=== PATIENT | male | born 1935 | race Caucasian/White ===

== ENCOUNTER 2016-12-15 17:42 | Inpatient (IN) | payer MEDICARE, BC ==
[2016-12-15] MEDS ORDERED: Sodium Chloride 0.9% 1,000 ML IV SCH ×2 (19:15→23:28)
[2016-12-15] MEDS ORDERED: Iopamidol 612 MG/ML 100 ML Bottle IV PRN (20:08)
[2016-12-15] MEDS ORDERED: Sodium Chloride 0.9% 10 ML Syringe FLUSH PRN (20:08)
--- NOTE | 2016-12-15 22:07 | EDM.PDOC ---
ED HISTORY OF PRESENT ILLNESS - General Chief Complaint: Chest Pain Stated Complaint: TROUBLE BREATHING Time Seen by Provider: 12/15/16 17:59 Source: Reports: Patient History Limitations: Reports: No limitations - History of Present Illness INITIAL COMMENTS - FREE TEXT/NARRATIVE: History of present illness: [72-year-old male presents with chest pain off and on it started this morning. He is somewhat vague he is described as burning and sharp and pleuritic in nature at times. He also describes a squeezing or tightening. at the time that I am seeing him he is not having a chest pain unless he coughs. He also complains of extreme weakness. He does have problems with pain of his hips and knees as well which is chronic. He has a cough as well the is minimally productive. He did have the stool a couple of days ago increased blood in his stool which was bright red blood per rectum staining the toilet. He may have had a fever off and on. He has trouble constipation no diarrhea denies dysuria. He occasionally has abdominal pain that is not too troublesome and intermittent. The last time was in the suprapubic area. He denies any upper abdominal pain. ] Review of systems: As per history of present illness and below otherwise all systems reviewed and negative. Past medical history: As per history of present illness and as reviewed below otherwise noncontributory. Surgical history: As per history of present illness and as reviewed below otherwise noncontributory. Social history: No reported history of drug or alcohol abuse. Family history: As per history of present illness and as reviewed below otherwise noncontributory. Physical exam: HEENT: Atraumatic, normocephalic, pupils reactive, conjunctival pallor is present but no scleral icterus, mucous membranes moist, throat clear, neck supple, with tenderness along the left neck which is chronic for him, trachea midline. Lungs: Has fair to good air movement with dry sounding crackles in the bases Heart: S1S2, regular Abdomen: Soft, nondistended, nontender. Negative for masses or hepatosplenomegaly. Negative for costovertebral tenderness. Pelvis: Stable nontender. Genitourinary: Deferred. Rectal: Deferred. Extremities: Atraumatic, negative for cords or calf pain. Neurovascular unremarkable. Neuro: Awake, alert, oriented. Cranial nerves II through XII unremarkable. Cerebellum unremarkable. Motor and sensory unremarkable throughout. Exam nonfocal. Diagnostics: [CBC complete metabolic panel UA were done in the most significant finding was a hemoglobin of 7.5. Abdominal pelvic CT along with a chest CT were obtained. He may have some mild congestive heart failure or some scarring. 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 Grande the patient will be admitted to him he received a unit of blood tonight. Tomorrow he can be prepped for upper and lower endoscopy on Saturday.] Definitive disposition and diagnosis as appropriate pending reevaluation and review of above. - Related Data Allergies/ADRs: Allergies Allergy/AdvReac Type Severity Reaction Status Date / Time Penicillins Allergy Cannot Verified 12/15/16 17:48 Remember Home Meds: Home Meds Aspirin [Halfprin] 81 mg PO DAILY 11/29/15 [History] Betamethasone/Propylene Glyc [Diprolene 0.05%] 1 applic TP BID 11/29/15 [History ] Bisacodyl [Dulcolax] 10 mg RC ASDIRECTED PRN 11/29/15 [History] Budesonide/Formoterol [Symbicort 160-4.5 Mcg Inhaler] 2 puff IH BID 11/29/15 [ History] Carbidopa/Levodopa [Sinemet 25-100 mg Tablet] 2 tab PO QID 11/29/15 [History] Cholecalciferol (Vitamin D3) [Vitamin D] 2,000 unit PO DAILY 11/29/15 [History] Citalopram Hydrobromide [Celexa] 20 mg PO DAILY 11/29/15 [History] Donepezil HCl [Aricept] 10 mg PO DAILY 11/29/15 [History] Glucosamine [Glucosamine Sulfate] 500 mg PO BID 11/29/15 [History] [place]-3S/DHA/Epa/Fish Oil [[place]-3 Fish Oil 1,000 mg Sfgl] 1 tab PO BID [History] Propranolol HCl [Inderal LA] 120 mg PO DAILY 11/29/15 [History] Tamsulosin HCl [Flomax] 0.4 mg PO DAILY 11/29/15 [History] Tiotropium [Spiriva HandiHaler] 1 cap INH DAILY 11/29/15 [History] Topiramate [Topamax] 25 mg PO BID 11/29/15 [History] Triamcinolone Acetonide [Kenalog 0.1% Crm] 1 applic TOP TID 11/29/15 [History] Finasteride [Proscar] 5 mg PO DAILY 08/29/16 [History] Mirabegron [Myrbetriq] 50 mg PO DAILY 08/29/16 [History] Multivitamin W-Minerals/Lutein [Vision Plus Lutein Vitamin] 1 each PO DAILY [History] Ubidecarenone [Co Q-10] 100 mg PO DAILY 08/29/16 [History] Methocarbamol [Robaxin] 500 mg PO Q8H PRN 12/15/16 [History] Past Medical History HEENT History: Reports: Cataract Respiratory History: Reports: COPD, SOB Gastrointestinal History: Reports: Chronic constipation, Cirrhosis Genitourinary History: Reports: BPH Musculoskeletal History: Reports: Back pain, chronic, Fracture Other Musculoskeletal History: left leg in [facility] [place] Neurological History: Reports: Parkinson's Dermatologic History: Reports: Other (see below) Other Dermatologic History: skin rash - Infectious Disease History Infectious Disease History: Reports: Chicken pox, Measles, Mumps - Past Surgical History HEENT Surgical History: Reports: Cataract surgery GI Surgical History: Reports: Colonoscopy, EGD, Hernia, inguinal Other GI Surgeries/Procedures: liver biopsy Social & Family History - Tobacco Use Smoking Status *Q: Never Smoker Years of Tobacco use: 48 Month Tobacco Last Used: 1999 Second Hand Smoke Exposure: No - Caffeine Use Caffeine Use: Reports: Coffee - Recreational Drug Use Recreational Drug Use: No ED ROS GENERAL - Review of Systems Review Of Systems: ROS reveals no pertinent complaints other than HPI. ED EXAM, GENERAL - Physical Exam Exam: See Below Course - Vital Signs Last Recorded V/S: Last Vital Signs Temp 37 C 12/15/16 18:11 Pulse 62 12/15/16 21:33 Resp 20 12/15/16 21:33 BP 162/100 H 12/15/16 21:33 Pulse Ox 94 L 12/15/16 21:33 - Orders/Labs/Meds Orders: Active Orders 24 hr Category Date Time Status EKG Documentation Completion [RC] ASDIRECTED Care 12/15/16 18:25 Active EKG Documentation Completion [RC] ASDIRECTED Care 12/15/16 19:05 Active Abdomen Pelvis w Cont [CT] Stat Exams 12/15/16 19:59 Taken Chest 1V Frontal [CR] Stat Exams 12/15/16 18:26 Taken PATIENT RETYPE [BBK] Stat Lab 12/15/16 19:15 Results TYPE AND SCREEN [BBK] Stat Lab 12/15/16 19:15 Results Iopamidol [Isovue-300 (61%)] Med 12/15/16 20:08 Active 100 ml IV . DIRECTED PRN Sodium Chloride 0.9% [Normal Saline] 1,000 ml Med 12/15/16 19:15 Active IV ASDIRECTED Sodium Chloride 0.9% [Normal Saline] 70 ml Med 12/15/16 20:15 Active IV ASDIRECTED Sodium Chloride 0.9% [Saline Flush] Med 12/15/16 20:08 Active 10 ml FLUSH ONETIME PRN EKG 12 Lead [EK] Stat Ther 12/15/16 18:24 Ordered EKG 12 Lead [EK] Stat Ther 12/15/16 19:05 Ordered Medication Orders Sodium Chloride (Normal Saline) 1,000 mls @ 250 mls/hr IV ASDIRECTED [facility] Last Admin: 12/15/16 19:17 Dose: 250 mls/hr Sodium Chloride (Normal Saline) 70 mls @ 3 mls/sec IV ASDIRECTED [facility] Last Admin: 12/15/16 20:55 Dose: 3 mls/sec Iopamidol (Isovue-300 (61%)) 100 ml IV . DIRECTED PRN PRN Reason: RADIOLOGY EXAM Stop: 12/16/16 20:09 Last Admin: 12/15/16 20:54 Dose: 100 ml Sodium Chloride (Saline Flush) 10 ml FLUSH ONETIME PRN PRN Reason: per radiology protocol Last Admin: 12/15/16 20:55 Dose: 10 ml Labs: Laboratory Tests 12/15/16 12/15/16 12/15/16 Range/Units 18:39 18:39 18:39 WBC 5.9 (4.5-11.0) K/uL RBC 2.36 L (4.30-5.90) M/uL Hgb 7.4 L (12.0-15.0) g/dL Hct 23.0 L (40.0-54.0) % MCV 98 (80-98) fL MCH 31 (27-31) pg MCHC 32 (32-36) % Plt Count 134 L (150-400) K/uL Neut % (Auto) 59 (36-66) % Lymph % (Auto) 28 (24-44) % [place] % (Auto) 10 H (2-6) % Eos % (Auto) 3 (2-4) % Baso % (Auto) 0 (0-1) % PT 11.8 (9.5-12.0) sec INR 1.11 (0.80-1.20) D-Dimer, Quantitative (0.0-400.0) ng/mL Sodium 139 L (140-148) mmol/L Potassium 4.5 (3.6-5.2) mmol/L Chloride 106 (100-108) mmol/L Carbon Dioxide 25 (21-32) mmol/L Anion Gap 12.5 (5.0-14.0) mmol/L BUN 35 H (7-18) mg/dL Creatinine 1.6 H (0.8-1.3) mg/dL Est Cr Clr Drug Dosing 39.06 mL/min Estimated GFR (MDRD) 42 L (>60) Glucose 141 H (74-106) mg/dL Lactic Acid (0.4-2.0) mmol/L Calcium 7.9 L (8.5-10.1) mg/dL Total Bilirubin 0.4 (0.2-1.0) mg/dL AST 24 (15-37) U/L ALT 9 L (12-78) U/L Alkaline Phosphatase 66 (46-116) U/L Troponin I (0.000-0.056) ng/mL C-Reactive Protein (0.0-0.3) mg/dL [id number] Pept (5-450) pg/mL Total Protein 6.6 (6.4-8.2) g/dL Albumin 2.5 L (3.4-5.0) g/dL Globulin 4.1 H (2.3-3.5) g/dL Albumin/Globulin Ratio 0.6 L (1.2-2.2) Urine Color Urine Appearance Urine pH (4.5-8.0) Ur Specific [place] (1.008-1.030) Urine Protein (NEGATIVE) mg/dL Urine Glucose (UA) (NEGATIVE) mg/dL Urine Ketones (NEGATIVE) mg/dL Urine Occult Blood (NEGATIVE) Urine Nitrite (NEGAITVE) Urine Bilirubin (NEGATIVE) Urine Urobilinogen (NORMAL) mg/dL Ur Leukocyte Esterase (NEGATIVE) Urine RBC (0-5) Urine WBC (0-5) Ur Epithelial Cells Amorphous Sediment Urine Bacteria Urine Mucus Blood Type Gel Antibody Screen 12/15/16 12/15/16 12/15/16 Range/Units 18:39 18:39 18:39 WBC (4.5-11.0) K/uL RBC (4.30-5.90) M/uL Hgb (12.0-15.0) g/dL Hct (40.0-54.0) % MCV (80-98) fL MCH (27-31) pg MCHC (32-36) % Plt Count (150-400) K/uL Neut % (Auto) (36-66) % Lymph % (Auto) (24-44) % [place] % (Auto) (2-6) % Eos % (Auto) (2-4) % Baso % (Auto) (0-1) % PT (9.5-12.0) sec INR (0.80-1.20) D-Dimer, Quantitative 1850 H (0.0-400.0) ng/mL Sodium (140-148) mmol/L Potassium (3.6-5.2) mmol/L Chloride (100-108) mmol/L Carbon Dioxide (21-32) mmol/L Anion Gap (5.0-14.0) mmol/L BUN (7-18) mg/dL Creatinine (0.8-1.3) mg/dL Est Cr Clr Drug Dosing mL/min Estimated GFR (MDRD) (>60) Glucose (74-106) mg/dL Lactic Acid 0.8 (0.4-2.0) mmol/L Calcium (8.5-10.1) mg/dL Total Bilirubin (0.2-1.0) mg/dL AST (15-37) U/L ALT (12-78) U/L Alkaline Phosphatase (46-116) U/L Troponin I 0.045 (0.000-0.056) ng/mL C-Reactive Protein 1.52 H (0.0-0.3) mg/dL Lfo-[id number]-Elgiwoxalzy Pept 2008 H (5-450) pg/mL Total Protein (6.4-8.2) g/dL Albumin (3.4-5.0) g/dL Globulin (2.3-3.5) g/dL Albumin/Globulin Ratio (1.2-2.2) Urine Color Urine Appearance Urine pH (4.5-8.0) Ur Specific [place] (1.008-1.030) Urine Protein (NEGATIVE) mg/dL Urine Glucose (UA) (NEGATIVE) mg/dL Urine Ketones (NEGATIVE) mg/dL Urine Occult Blood (NEGATIVE) Urine Nitrite (NEGAITVE) Urine Bilirubin (NEGATIVE) Urine Urobilinogen (NORMAL) mg/dL Ur Leukocyte Esterase (NEGATIVE) Urine RBC (0-5) Urine WBC (0-5) Ur Epithelial Cells Amorphous Sediment Urine Bacteria Urine Mucus Blood Type Gel Antibody Screen 12/15/16 12/15/16 Range/Units 19:15 20:27 WBC (4.5-11.0) K/uL RBC (4.30-5.90) M/uL Hgb (12.0-15.0) g/dL Hct (40.0-54.0) % MCV (80-98) fL MCH (27-31) pg MCHC (32-36) % Plt Count (150-400) K/uL Neut % (Auto) (36-66) % Lymph % (Auto) (24-44) % [place] % (Auto) (2-6) % Eos % (Auto) (2-4) % Baso % (Auto) (0-1) % PT (9.5-12.0) sec INR (0.80-1.20) D-Dimer, Quantitative (0.0-400.0) ng/mL Sodium (140-148) mmol/L Potassium (3.6-5.2) mmol/L Chloride (100-108) mmol/L Carbon Dioxide (21-32) mmol/L Anion Gap (5.0-14.0) mmol/L BUN (7-18) mg/dL Creatinine (0.8-1.3) mg/dL Est Cr Clr Drug Dosing mL/min Estimated GFR (MDRD) (>60) Glucose (74-106) mg/dL Lactic Acid (0.4-2.0) mmol/L Calcium (8.5-10.1) mg/dL Total Bilirubin (0.2-1.0) mg/dL AST (15-37) U/L ALT (12-78) U/L Alkaline Phosphatase (46-116) U/L Troponin I (0.000-0.056) ng/mL C-Reactive Protein (0.0-0.3) mg/dL [id number]-R-[id number] Pept (5-450) pg/mL Total Protein (6.4-8.2) g/dL Albumin (3.4-5.0) g/dL Globulin (2.3-3.5) g/dL Albumin/Globulin Ratio (1.2-2.2) Urine Color Yellow Urine Appearance Clear Urine pH 5.0 (4.5-8.0) Ur Specific [place] 1.015 (1.008-1.030) Urine Protein 30 H (NEGATIVE) mg/dL Urine Glucose (UA) Normal (NEGATIVE) mg/dL Urine Ketones Negative (NEGATIVE) mg/dL Urine Occult Blood Moderate (NEGATIVE) Urine Nitrite Negative (NEGAITVE) Urine Bilirubin Negative (NEGATIVE) Urine Urobilinogen Normal (NORMAL) mg/dL Ur Leukocyte Esterase Negative (NEGATIVE) Urine RBC 5-10 H (0-5) Urine WBC Not seen (0-5) Ur Epithelial Cells Rare Amorphous Sediment Not seen Urine Bacteria Few Urine Mucus Rare Blood Type B POSITIVE Gel Antibody Screen Negative Meds: Medications Generic Name Dose Route Start Last Admin Trade Name Freq PRN Reason Stop Dose Admin Sodium Chloride 1,000 mls @ 250 mls/hr 12/15/16 19:15 12/15/16 19:17 Normal Saline IV 250 mls/hr ASDIRECTED ULISES Administration Sodium Chloride 70 mls @ 3 mls/sec 12/15/16 20:15 12/15/16 20:55 Normal Saline IV 3 mls/sec ASDIRECTED ULISES Administration Iopamidol 100 ml 12/15/16 20:08 12/15/16 20:54 Isovue-300 (61%) IV 12/16/16 20:09 100 ml . DIRECTED PRN Administration RADIOLOGY EXAM Sodium Chloride 10 ml 12/15/16 20:08 12/15/16 20:55 Saline Flush FLUSH 10 ml ONETIME PRN Administration per radiology protocol Departure - Departure Time of Disposition: 22:07 Disposition: Admitted As Inpatient 68 Condition: fair Clinical Impression: Atypical chest pain, Abnormal chest CT, Portal hypertension Anemia Qualifiers: Anemia type: unspecified type Qualified Code(s): D64.9 - Anemia, unspecified Cirrhosis Qualifiers: Hepatic cirrhosis type: unspecified hepatic cirrhosis Ascites presence: without ascites Qualified Code(s): K74.60 - Unspecified cirrhosis of liver Forms: ED Department Discharge - My Orders Last 24 Hours: My Active Orders 12/15/16 18:24 EKG 12 Lead [EK] Stat 12/15/16 18:25 EKG Documentation Completion [RC] ASDIRECTED 12/15/16 18:26 Chest 1V Frontal [CR] Stat 12/15/16 19:05 EKG Documentation Completion [RC] ASDIRECTED EKG 12 Lead [EK] Stat 12/15/16 19:15 PATIENT RETYPE [BBK] Stat TYPE AND SCREEN [BBK] Stat Sodium Chloride 0.9% [Normal Saline] 1,000 ml IV ASDIRECTED 12/15/16 19:59 Abdomen Pelvis w Cont [CT] Stat 12/15/16 20:08 Iopamidol [Isovue-300 (61%)] 100 ml IV . DIRECTED PRN Sodium Chloride 0.9% [Saline Flush] 10 ml FLUSH ONETIME PRN 12/15/16 20:15 Sodium Chloride 0.9% [Normal Saline] 70 ml IV ASDIRECTED - Assessment/Plan Last 24 Hours: My Active Orders 12/15/16 18:24 EKG 12 Lead [EK] Stat 12/15/16 18:25 EKG Documentation Completion [RC] ASDIRECTED 12/15/16 18:26 Chest 1V Frontal [CR] Stat 12/15/16 19:05 EKG Documentation Completion [RC] ASDIRECTED EKG 12 Lead [EK] Stat 12/15/16 19:15 PATIENT RETYPE [BBK] Stat TYPE AND SCREEN [BBK] Stat Sodium Chloride 0.9% [Normal Saline] 1,000 ml IV ASDIRECTED 12/15/16 19:59 Abdomen Pelvis w Cont [CT] Stat 12/15/16 20:08 Iopamidol [Isovue-300 (61%)] 100 ml IV . DIRECTED PRN Sodium Chloride 0.9% [Saline Flush] 10 ml FLUSH ONETIME PRN 12/15/16 20:15 Sodium Chloride 0.9% [Normal Saline] 70 ml IV ASDIRECTED
--- NOTE | 2016-12-15 22:47 | PCM.HP ---
H&P History of Present Illness - General Date of Service: 12/15/16 Admit Problem/Dx: Admission Diagnosis/Problem Admission Diagnosis/Problem Gastrointestinal hemorrhage Source of Information: Patient, Family, Provider History Limitations: Reports: No limitations - History of Present Illness Initial Comments - Free Text/Narative: Jonathan presents to the emergency room today with shortness of breath and epigastric discomfort. Symptoms started this morning and he had a mild episode which resolved on its own but then throughout the day he has had more and more difficulty with pain in the epigastrium and lower chest when he is taking deep breaths. This is a sharp pain that is moderate in nature. He hasn't taken anything to make it feel better. Breathing makes it feel worse. Has never had pain like this before. He had an episode yesterday where he expelled a large quantity of blood into the toilet. He did not have any abdominal pain at that time. Has not had abdominal pain. No complaints of abdominal pain or hematemesis. He has had an increase in his heartburn over the past couple of weeks. No complaints of cough. He has been weak and fatigued and short of breath with exertion over the past week or so. He says that he has not felt well for the past 2 weeks. Workup in the emergency room revealed evidence for anemia with a hemoglobin of 7.4. His hemoglobin was 10.6 six weeks ago. he'll be admitted to the hospital with concern for acute blood loss anemia secondary to gastrointestinal hemorrhage. Lower Back Pain Score (Numeric/FACES): 4 - Related Data Allergies/Adverse Reactions: Allergies Allergy/AdvReac Type Severity Reaction Status Date / Time Penicillins Allergy Cannot Verified 12/15/16 17:48 Remember Home Medications: Home Meds Aspirin [Halfprin] 81 mg PO DAILY 11/29/15 [History] Betamethasone/Propylene Glyc [Diprolene 0.05%] 1 applic TP BID 11/29/15 [History ] Bisacodyl [Dulcolax] 10 mg RC ASDIRECTED PRN 11/29/15 [History] Budesonide/Formoterol [Symbicort 160-4.5 Mcg Inhaler] 2 puff IH BID 11/29/15 [ History] Carbidopa/Levodopa [Sinemet 25-100 mg Tablet] 2 tab PO QID 11/29/15 [History] Cholecalciferol (Vitamin D3) [Vitamin D] 2,000 unit PO DAILY 11/29/15 [History] Citalopram Hydrobromide [Celexa] 20 mg PO DAILY 11/29/15 [History] Donepezil HCl [Aricept] 10 mg PO DAILY 11/29/15 [History] Glucosamine [Glucosamine Sulfate] 500 mg PO BID 11/29/15 [History] [place]-3S/DHA/Epa/Fish Oil [[place]-3 Fish Oil 1,000 mg Sfgl] 1 tab PO BID [History] Propranolol HCl [Inderal LA] 120 mg PO DAILY 11/29/15 [History] Tamsulosin HCl [Flomax] 0.4 mg PO DAILY 11/29/15 [History] Tiotropium [Spiriva HandiHaler] 1 cap INH DAILY 11/29/15 [History] Topiramate [Topamax] 25 mg PO BID 11/29/15 [History] Triamcinolone Acetonide [Kenalog 0.1% Crm] 1 applic TOP TID 11/29/15 [History] Finasteride [Proscar] 5 mg PO DAILY 08/29/16 [History] Mirabegron [Myrbetriq] 50 mg PO DAILY 08/29/16 [History] Multivitamin W-Minerals/Lutein [Vision Plus Lutein Vitamin] 1 each PO DAILY [History] Ubidecarenone [Co Q-10] 100 mg PO DAILY 08/29/16 [History] Methocarbamol [Robaxin] 500 mg PO Q8H PRN 12/15/16 [History] Past Medical History HEENT History: Reports: Cataract Respiratory History: Reports: COPD, SOB Gastrointestinal History: Reports: Chronic constipation, Cirrhosis Genitourinary History: Reports: BPH Musculoskeletal History: Reports: Back pain, chronic, Fracture Other Musculoskeletal History: left leg in college Neurological History: Reports: Parkinson's Dermatologic History: Reports: Other (see below) Other Dermatologic History: skin rash - Infectious Disease History Infectious Disease History: Reports: Chicken pox, Measles, Mumps - Past Surgical History HEENT Surgical History: Reports: Cataract surgery GI Surgical History: Reports: Colonoscopy, EGD, Hernia, inguinal Other GI Surgeries/Procedures: liver biopsy Social & Family History - Family History GI: Denies: Cirrhosis - Tobacco Use Smoking Status *Q: Never Smoker Years of Tobacco use: 48 Month Tobacco Last Used: 1999 Second Hand Smoke Exposure: No - Caffeine Use Caffeine Use: Reports: Coffee - Alcohol Use Alcohol Use History: Yes - Recreational Drug Use Recreational Drug Use: No H&P Review of Systems - Review of Systems: Review Of Systems: See Below Free Text/Narrative: A complete 12 point review of systems was obtained. Pertinent positives and negatives are noted in the history of present illness. All other systems were reviewed and were negative except as noted. Exam - Exam Exam: See Below - Vital Signs Vital Signs: Last Vital Signs Temp 37 C 12/15/16 18:11 Pulse 62 12/15/16 21:33 Resp 20 12/15/16 21:33 BP 162/100 H 12/15/16 21:33 Pulse Ox 94 L 12/15/16 21:33 Weight: 72.575 kg - Exam Quality Assessment: No: supplemental oxygen, urinary catheter General: alert, oriented, cooperative. No: mild distress HEENT: Conjunctiva clear, Posterior pharynx clear. No: Mucosa moist & pink (dry ), Scleral icterus Neck: supple, trachea midline. No: lymphadenopathy, thyromegaly Lungs: Clear to auscultation, Normal respiratory effort Cardiovascular: regular rate, regular rhythm. No: systolic murmur Abdomen: normal bowel sounds, soft, tenderness (mild lower midabdomen pain). No : distention, guarding, mass Back Exam: normal inspection, full range of motion Extremities: normal inspection, normal pulses. No: edema Peripheral Pulses: 2+: dorsalis pedis (L), dorsalis pedis (R) Skin: warm, dry, intact Neuro Extensive - Mental Status: alert, oriented x3, nl response to commands Neuro Extensive - Motor, Sensory, Reflexes: CN II-XII intact. No: dysarthria, tremor Psychiatric: alert, normal affect - Patient Data Lab Results last 24 hrs: Laboratory Results - last 24 hr 12/15/16 12/15/16 12/15/16 Range/Units 18:39 18:39 18:39 WBC 5.9 (4.5-11.0) K/uL RBC 2.36 L (4.30-5.90) M/uL Hgb 7.4 L (12.0-15.0) g/dL Hct 23.0 L (40.0-54.0) % MCV 98 (80-98) fL MCH 31 (27-31) pg MCHC 32 (32-36) % Plt Count 134 L (150-400) K/uL Neut % (Auto) 59 (36-66) % Lymph % (Auto) 28 (24-44) % [place] % (Auto) 10 H (2-6) % Eos % (Auto) 3 (2-4) % Baso % (Auto) 0 (0-1) % PT 11.8 (9.5-12.0) sec INR 1.11 (0.80-1.20) D-Dimer, Quantitative (0.0-400.0) ng/mL Sodium 139 L (140-148) mmol/L Potassium 4.5 (3.6-5.2) mmol/L Chloride 106 (100-108) mmol/L Carbon Dioxide 25 (21-32) mmol/L Anion Gap 12.5 (5.0-14.0) mmol/L BUN 35 H (7-18) mg/dL Creatinine 1.6 H (0.8-1.3) mg/dL Est Cr Clr Drug Dosing 39.06 mL/min Estimated GFR (MDRD) 42 L (>60) Glucose 141 H (74-106) mg/dL Lactic Acid (0.4-2.0) mmol/L Calcium 7.9 L (8.5-10.1) mg/dL Total Bilirubin 0.4 (0.2-1.0) mg/dL AST 24 (15-37) U/L ALT 9 L (12-78) U/L Alkaline Phosphatase 66 (46-116) U/L Troponin I (0.000-0.056) ng/mL C-Reactive Protein (0.0-0.3) mg/dL Ptt-X-Govsngbkhnm Pept (5-450) pg/mL Total Protein 6.6 (6.4-8.2) g/dL Albumin 2.5 L (3.4-5.0) g/dL Globulin 4.1 H (2.3-3.5) g/dL Albumin/Globulin Ratio 0.6 L (1.2-2.2) Urine Color Urine Appearance Urine pH (4.5-8.0) Ur Specific [place] (1.008-1.030) Urine Protein (NEGATIVE) mg/dL Urine Glucose (UA) (NEGATIVE) mg/dL Urine Ketones (NEGATIVE) mg/dL Urine Occult Blood (NEGATIVE) Urine Nitrite (NEGAITVE) Urine Bilirubin (NEGATIVE) Urine Urobilinogen (NORMAL) mg/dL Ur Leukocyte Esterase (NEGATIVE) Urine RBC (0-5) Urine WBC (0-5) Ur Epithelial Cells Amorphous Sediment Urine Bacteria Urine Mucus Blood Type Gel Antibody Screen 12/15/16 12/15/16 12/15/16 Range/Units 18:39 18:39 18:39 WBC (4.5-11.0) K/uL RBC (4.30-5.90) M/uL Hgb (12.0-15.0) g/dL Hct (40.0-54.0) % MCV (80-98) fL MCH (27-31) pg MCHC (32-36) % Plt Count (150-400) K/uL Neut % (Auto) (36-66) % Lymph % (Auto) (24-44) % [place] % (Auto) (2-6) % Eos % (Auto) (2-4) % Baso % (Auto) (0-1) % PT (9.5-12.0) sec INR (0.80-1.20) D-Dimer, Quantitative 1850 H (0.0-400.0) ng/mL Sodium (140-148) mmol/L Potassium (3.6-5.2) mmol/L Chloride (100-108) mmol/L Carbon Dioxide (21-32) mmol/L Anion Gap (5.0-14.0) mmol/L BUN (7-18) mg/dL Creatinine (0.8-1.3) mg/dL Est Cr Clr Drug Dosing mL/min Estimated GFR (MDRD) (>60) Glucose (74-106) mg/dL Lactic Acid 0.8 (0.4-2.0) mmol/L Calcium (8.5-10.1) mg/dL Total Bilirubin (0.2-1.0) mg/dL AST (15-37) U/L ALT (12-78) U/L Alkaline Phosphatase (46-116) U/L Troponin I 0.045 (0.000-0.056) ng/mL C-Reactive Protein 1.52 H (0.0-0.3) mg/dL Reh-Q-Anlnzfqthah Pept 2008 H (5-450) pg/mL Total Protein (6.4-8.2) g/dL Albumin (3.4-5.0) g/dL Globulin (2.3-3.5) g/dL Albumin/Globulin Ratio (1.2-2.2) Urine Color Urine Appearance Urine pH (4.5-8.0) Ur Specific [place] (1.008-1.030) Urine Protein (NEGATIVE) mg/dL Urine Glucose (UA) (NEGATIVE) mg/dL Urine Ketones (NEGATIVE) mg/dL Urine Occult Blood (NEGATIVE) Urine Nitrite (NEGAITVE) Urine Bilirubin (NEGATIVE) Urine Urobilinogen (NORMAL) mg/dL Ur Leukocyte Esterase (NEGATIVE) Urine RBC (0-5) Urine WBC (0-5) Ur Epithelial Cells Amorphous Sediment Urine Bacteria Urine Mucus Blood Type Gel Antibody Screen 12/15/16 12/15/16 Range/Units 19:15 20:27 WBC (4.5-11.0) K/uL RBC (4.30-5.90) M/uL Hgb (12.0-15.0) g/dL Hct (40.0-54.0) % MCV (80-98) fL MCH (27-31) pg MCHC (32-36) % Plt Count (150-400) K/uL Neut % (Auto) (36-66) % Lymph % (Auto) (24-44) % [place] % (Auto) (2-6) % Eos % (Auto) (2-4) % Baso % (Auto) (0-1) % PT (9.5-12.0) sec INR (0.80-1.20) D-Dimer, Quantitative (0.0-400.0) ng/mL Sodium (140-148) mmol/L Potassium (3.6-5.2) mmol/L Chloride (100-108) mmol/L Carbon Dioxide (21-32) mmol/L Anion Gap (5.0-14.0) mmol/L BUN (7-18) mg/dL Creatinine (0.8-1.3) mg/dL Est Cr Clr Drug Dosing mL/min Estimated GFR (MDRD) (>60) Glucose (74-106) mg/dL Lactic Acid (0.4-2.0) mmol/L Calcium (8.5-10.1) mg/dL Total Bilirubin (0.2-1.0) mg/dL AST (15-37) U/L ALT (12-78) U/L Alkaline Phosphatase (46-116) U/L Troponin I (0.000-0.056) ng/mL C-Reactive Protein (0.0-0.3) mg/dL Mbh-P-Yrxoebuzbfk Pept (5-450) pg/mL Total Protein (6.4-8.2) g/dL Albumin (3.4-5.0) g/dL Globulin (2.3-3.5) g/dL Albumin/Globulin Ratio (1.2-2.2) Urine Color Yellow Urine Appearance Clear Urine pH 5.0 (4.5-8.0) Ur Specific [place] 1.015 (1.008-1.030) Urine Protein 30 H (NEGATIVE) mg/dL Urine Glucose (UA) Normal (NEGATIVE) mg/dL Urine Ketones Negative (NEGATIVE) mg/dL Urine Occult Blood Moderate (NEGATIVE) Urine Nitrite Negative (NEGAITVE) Urine Bilirubin Negative (NEGATIVE) Urine Urobilinogen Normal (NORMAL) mg/dL Ur Leukocyte Esterase Negative (NEGATIVE) Urine RBC 5-10 H (0-5) Urine WBC Not seen (0-5) Ur Epithelial Cells Rare Amorphous Sediment Not seen Urine Bacteria Few Urine Mucus Rare Blood Type B POSITIVE Gel Antibody Screen Negative Result Diagrams: 12/15/16 18:39 12/15/16 18:39 Nabeel Results last 24 hrs: Microbiology 12/15/16 19:14 Influenza Type A Antigen Screen - Final Nasopharyngeal Swab - Nare, Unspecified NEGATIVE INFLUENZA A VIRUS AG Influenza Type B Antigen Screen - Final NEGATIVE INFLUENZA B VIRUS AG Imaging Impressions last 24 hrs: CT scan of the abdomen and pelvis - images personally reviewed - there is evidence for cirrhosis and changes to suggest portal hypertension. No definite infiltrates are noted in the lungs. No acute intra-abdominal pathology is identified. EKG INTERPRETATION EKG Date: 12/15/16 Rhythm: NSR Rate (beats/min): 70 [place]: normal P-wave: present QRS: wide (nonspecific intraventricular conduction delay) ST-T: normal QT: normal *Q Meaningful Use (ADM) - VTE *Q VTE Criteria *Q: VTE Pharmacological Contraindications *Q: Active Hemorrhage - Stroke *Q Stroke Criteria *Q: - AMI *Q AMI Criteria *Q: - Problem List (1) Acute gastrointestinal hemorrhage SNOMED Code(s): 56903302 ICD Code: K92.2 - GASTROINTESTINAL HEMORRHAGE, UNSPECIFIED Status: Acute Current Visit: Yes (2) Acute blood loss anemia SNOMED Code(s): 415025472 ICD Code: D62 - ACUTE POSTHEMORRHAGIC ANEMIA Status: Acute Current Visit : Yes (3) Parkinsons disease SNOMED Code(s): 65672816 ICD Code: G20 - PARKINSON'S DISEASE Status: Chronic Current Visit: Yes Problem List Initiated/Reviewed/Updated: Yes Orders Last 24hrs: Active Orders 24 hr Category Date Time Status Patient Status Manage Transfer [TRANSFER] Routine ADT 12/15/16 22:26 Ordered EKG Documentation Completion [RC] ASDIRECTED Care 12/15/16 18:25 Active EKG Documentation Completion [RC] ASDIRECTED Care 12/15/16 19:05 Active Abdomen Pelvis w Cont [CT] Stat Exams 12/15/16 19:59 Taken Chest 1V Frontal [CR] Stat Exams 12/15/16 18:26 Taken PATIENT RETYPE [BBK] Stat Lab 12/15/16 19:15 Results TYPE AND SCREEN [BBK] Stat Lab 12/15/16 19:15 Results Iopamidol [Isovue-300 (61%)] Med 12/15/16 20:08 Active 100 ml IV . DIRECTED PRN Sodium Chloride 0.9% [Normal Saline] 1,000 ml Med 12/15/16 19:15 Active IV ASDIRECTED Sodium Chloride 0.9% [Normal Saline] 70 ml Med 12/15/16 20:15 Active IV ASDIRECTED Sodium Chloride 0.9% [Saline Flush] Med 12/15/16 20:08 Active 10 ml FLUSH ONETIME PRN Resuscitation Status Routine Resus Stat 12/15/16 22:29 Ordered EKG 12 Lead [EK] Stat Ther 12/15/16 18:24 Ordered EKG 12 Lead [EK] Stat Ther 12/15/16 19:05 Ordered Medication Orders Sodium Chloride (Normal Saline) 1,000 mls @ 250 mls/hr IV ASDIRECTED ULISES Last Admin: 12/15/16 19:17 Dose: 250 mls/hr Sodium Chloride (Normal Saline) 70 mls @ 3 mls/sec IV ASDIRECTED [facility] Last Admin: 12/15/16 20:55 Dose: 3 mls/sec Iopamidol (Isovue-300 (61%)) 100 ml IV . DIRECTED PRN PRN Reason: RADIOLOGY EXAM Stop: 12/16/16 20:09 Last Admin: 12/15/16 20:54 Dose: 100 ml Sodium Chloride (Saline Flush) 10 ml FLUSH ONETIME PRN PRN Reason: per radiology protocol Last Admin: 12/15/16 20:55 Dose: 10 ml Assessment/Plan Comment:: Assessment and plan - Acute gastrointestinal hemorrhage with acute blood loss anemia - with increasing heartburn over the past couple of weeks and history of ulcers I would suspect that this is an upper GI bleed. Presenting complaints of shortness of breath probably caused by the anemia. Hemoglobin has dropped by more than 5 points in the past 2 months.he is currently hemodynamically stable but with his hemoglobin at 7 I think he is at a high risk for instability if he has additional bleeding. With evidence for portal hypertension varices are a possibility but he does not have a history of these. -Admit to the intensive care unit -Twice daily proton pump inhibitor -IV fluids -Transfuse 1 unit of blood tonight -Check hemoglobin first thing in the morning -cardiac monitoring -Plan for upper and lower endoscopy on Saturday unless he becomes unstable between now and then Advanced Parkinson's disease - declining functional status over the past 2 years. Still has a pretty good quality of life. -Continue home medications Cirrhosis - noted on CT scan, history of alcohol use. No evidence for decompensated liver disease. Maintenance issues - - DVT prophylaxis - mechanical - GI prophylaxis - PPI - Nutrition - full liquids tonight, clear liquids tomorrow - Murphy catheter - not indicated CODE STATUS - full code Admission justification - This patient will be admitted for inpatient services and is medically appropriate meeting medical necessity for inpatient admission as outlined in my documentation. I reasonably expect the patient will require inpatient services that span a period time over 2 midnights. I reasonably expect this patient to be discharged or transferred within 96 hours [facility]. Disposition - anticipate discharge home after the hospital stay Primary care physician - Dr. Nile George M.D.
[2016-12-15] MEDS ORDERED: Albuterol 0.083% 2.5 MG/3 ML Neb Soln NEB PRN (23:28)
[2016-12-15] MEDS ORDERED: Ondansetron 4 MG Tab.DIS PO PRN (23:28)
[2016-12-15] MEDS ORDERED: Pantoprazole 40 MG Vial IV SCH (23:28)
[2016-12-15] MEDS ORDERED: Ondansetron 4 MG/2 ML SDV IV PRN (23:28)
[2016-12-16] MEDS: Citalopram 20 MG Tab PO SCH ×2 (00:19→19:59)
[2016-12-16] MEDS: Finasteride 5 MG Tab PO SCH ×2 (00:19→20:00)
[2016-12-16] MEDS: Carbidopa/Levodopa 25-100 MG Tab PO SCH ×5 (05:40→20:01)
[2016-12-16] MEDS: Tiotropium Inhaler 18 MCG Inhalation Powder Cap Kit of 5 INH SCH (08:49)
[2016-12-16] MEDS ORDERED: Tiotropium Inhaler 18 MCG Inhalation Powder Cap Kit of 5 INH SCH (09:00)
[2016-12-16] MEDS: Donepezil 10 MG Tab PO SCH (09:04)
[2016-12-16] MEDS ORDERED: Sodium Chloride 0.9% 1,000 ML IV SCH (09:05)
[2016-12-16] MEDS: Tamsulosin 0.4 MG Cap.ER PO SCH (09:05)
[2016-12-16] MEDS: Propranolol 60 MG Cap.ER PO SCH (09:05)
[2016-12-16] MEDS: Topiramate 25 MG Tab PO SCH ×2 (09:07→19:59)
--- NOTE | 2016-12-16 09:07 | PCM.PN ---
- General Info Date of Service: 12/16/16 Functional Status: Reports: pain controlled, tolerating diet - Review of Systems General: Reports: Weakness. Denies: Fever Gastrointestinal: Reports: Abdominal pain. Denies: Hematochezia, Melena, Vomiting Systems Review Comment:: No acute events since the time of admission. Hemoglobin responded nicely to blood transfusion overnight. He has not had additional episodes of hematochezia or melena as of now. Mild ongoing epigastric pain but this seems improved today. Blood pressures have been stable. No nausea or vomiting. Tolerating diet so far. - Patient Data Vitals - most recent: Last Vital Signs Temp 35.6 C 12/16/16 05:35 Pulse 62 12/15/16 21:33 Resp 19 12/16/16 05:35 BP 191/79 H 12/16/16 05:35 Pulse Ox 98 12/16/16 05:35 Weight - most recent: 76.566 kg I&O - last 24 hours: Intake & Output 12/15/16 12/16/16 12/16/16 22:59 06:59 14:59 Intake Total 835 Output Total 1150 Balance -315 Lab Results last 24 hrs: Laboratory Results - last 24 hr 12/16/16 12/16/16 Range/Units 05:39 05:39 WBC 6.5 (4.5-11.0) K/uL RBC 2.91 L (4.30-5.90) M/uL Hgb 9.1 L (12.0-15.0) g/dL Hct 27.8 L (40.0-54.0) % MCV 96 (80-98) fL MCH 31 (27-31) pg MCHC 33 (32-36) % Plt Count 152 (150-400) K/uL Sodium 145 (140-148) mmol/L Potassium 4.5 (3.6-5.2) mmol/L Chloride 111 H (100-108) mmol/L Carbon Dioxide 25 (21-32) mmol/L Anion Gap 13.5 (5.0-14.0) mmol/L BUN 27 H (7-18) mg/dL Creatinine 1.5 H (0.8-1.3) mg/dL Est Cr Clr Drug Dosing 41.91 mL/min Estimated GFR (MDRD) 45 L (>60) Glucose 121 H (74-106) mg/dL Calcium 7.9 L (8.5-10.1) mg/dL Med Orders - Current: Current Medications Acetaminophen (Tylenol) 650 mg PO Q4H PRN PRN Reason: Pain (Mild 1-3)/fever Albuterol (Proventil Neb Soln) 2.5 mg NEB Q4H PRN PRN Reason: Shortness Of Breath/wheezing Carbidopa/Levodopa (Sinemet 25-100 Mg) 2 tab PO 5XDAY@0500,0930,1300 [facility] Last Admin: 12/16/16 09:06 Dose: 2 tab Carbidopa/Levodopa (Sinemet 25-100 Mg) 2 tab PO 5XDAY@1630,2100 [facility] Citalopram Hydrobromide (Celexa) 20 mg PO BEDTIME [facility] Last Admin: 12/16/16 00:19 Dose: 20 mg Donepezil HCl (Aricept) 10 mg PO DAILY [facility] Last Admin: 12/16/16 09:04 Dose: 10 mg Finasteride (Proscar) 5 mg PO BEDTIME [facility] Last Admin: 12/16/16 00:19 Dose: 5 mg Methocarbamol (Robaxin) 500 mg PO Q8H PRN PRN Reason: Muscle Spasm Mirabegron (Myrbetriq) 50 mg PO DAILY [facility] Ondansetron HCl (Zofran Odt) 4 mg PO Q6H PRN PRN Reason: Nausea able to take PO Ondansetron HCl (Zofran) 4 mg IV Q6H PRN PRN Reason: Nausea/Vomiting Pantoprazole Sodium (Protonix Iv) 40 mg IV Q12H [facility] Propranolol HCl (Inderal La) 120 mg PO DAILY [facility] Last Admin: 12/16/16 09:05 Dose: 120 mg Sodium Chloride (Saline Flush) 10 ml FLUSH ONETIME PRN PRN Reason: per radiology protocol Last Admin: 12/15/16 20:55 Dose: 10 ml Tamsulosin HCl (Flomax) 0.4 mg PO DAILY [facility] Last Admin: 12/16/16 09:05 Dose: 0.4 mg Tiotropium [place] (Spiriva Handihaler) 18 mcg INH DAILYRT [facility] Last Admin: 12/16/16 08:49 Dose: 18 mcg Topiramate (Topamax) 25 mg PO BID [facility] Discontinued Medications Sodium Chloride (Normal Saline) 1,000 mls @ 250 mls/hr IV ASDIRECTED [facility] Last Admin: 12/15/16 19:17 Dose: 250 mls/hr Sodium Chloride (Normal Saline) 70 mls @ 3 mls/sec IV ASDIRECTED [facility] Last Admin: 12/15/16 20:55 Dose: 3 mls/sec Sodium Chloride (Normal Saline) 1,000 mls @ 125 mls/hr IV ASDIRECTED [facility] Last Admin: 12/16/16 00:18 Dose: 125 mls/hr Iopamidol (Isovue-300 (61%)) 100 ml IV . DIRECTED PRN PRN Reason: RADIOLOGY EXAM Stop: 12/16/16 20:09 Last Admin: 12/15/16 20:54 Dose: 100 ml Pantoprazole Sodium (Protonix Iv) 40 mg IV Q12H [facility] Last Admin: 12/16/16 00:18 Dose: 40 mg - Exam Quality Assessment: No: supplemental oxygen General: alert, oriented, cooperative, no acute distress Neck: supple Lungs: Clear to auscultation, Normal respiratory effort Cardiovascular: Regular Rate, Regular Rhythm. No: Murmurs Abdomen: bowel sounds present, soft, no tenderness, no distension Back Exam: normal inspection Extremities: no edema, no cyanosis Skin: warm, dry Psy/Mental Status: alert, normal affect - Problem List & Annotations (1) Acute gastrointestinal hemorrhage SNOMED Code(s): 02224540 Code(s): K92.2 - GASTROINTESTINAL HEMORRHAGE, UNSPECIFIED Status: Acute Current Visit: Yes (2) Acute blood loss anemia SNOMED Code(s): 077388077 Code(s): D62 - ACUTE POSTHEMORRHAGIC ANEMIA Status: Acute Current Visit: Yes (3) Parkinsons disease SNOMED Code(s): 64659741 Code(s): G20 - PARKINSON'S DISEASE Status: Chronic Current Visit: Yes - Problem List Review Problem List Initiated/Reviewed/Updated: Yes - My Orders Last 24 Hours: My Active Orders 12/15/16 19:15 RED BLOOD CELLS LP [BBK] Stat 12/15/16 22:29 Resuscitation Status Routine 12/15/16 23:28 Patient Status [ADT] Routine Bedrest Bathroom Privileges [RC] ASDIRECTED Cardiac Monitoring [RC] Q6H Intake and Output [RC] QSHIFT Notify Provider Vital Signs [RC] ASDIRECTED Oxygen Therapy [RC] PRN Pulse Oximetry [RC] CONTINUOUS RT Aerosol Therapy [RC] ASDIRECTED VTE/DVT Education [RC] Per Unit Routine Vital Signs [RC] Q2H Acetaminophen [Tylenol] 650 mg PO Q4H PRN Albuterol [Proventil Neb Soln] 2.5 mg NEB Q4H PRN Ondansetron [Zofran ODT] 4 mg PO Q6H PRN Ondansetron [Zofran] 4 mg IV Q6H PRN Sequential Compression Device [OM.PC] Per Unit Routine Transfuse Red Blood Cells [COMM] Routine VTE Pharmacological Contraindications [AST] Per Unit Routine 12/16/16 08:00 Tiotropium [Spiriva HandiHaler] 18 mcg INH DAILYRT 12/16/16 09:05 Sodium Chloride 0.9% [Normal Saline] 1,000 ml IV ASDIRECTED 12/16/16 11:00 Pantoprazole [ProTONIX IV] 40 mg IV Q12H 12/16/16 15:00 HGB [HEMOGLOBIN] [HEME] Timed 12/16/16 16:30 Carbidopa/Levodopa [Sinemet 25-100 mg] 2 tab PO 5XDAY@1630,2100 12/16/16 Lunch Mechanical Soft Diet [DIET] 12/17/16 05:00 BASIC METABOLIC PANEL,BMP [CHEM] Timed CBC W/O DIFF,HEMOGRAM [HEME] Timed (1) 12/17/16 Breakfast NPO After Midnight [Nothing per Oral After Midnight Diet] [DIET] - Plan Plan:: Assessment and plan - Acute gastrointestinal hemorrhage with acute blood loss anemia - with increasing heartburn over the past couple of weeks and history of ulcers I would suspect that this is an upper GI bleed. Responded nicely to blood transfusion overnight. No additional bleeding so far. Upper endoscopy planned for tomorrow. -Twice daily proton pump inhibitor -IV fluids -Serial hemoglobin levels -cardiac monitoring -Plan for upper endoscopy on Saturday with Dr. Carolina ([id number]) Advanced Parkinson's disease - declining functional status over the past 2 years. Still has a pretty good quality of life. -Continue home medications Cirrhosis - noted on CT scan, history of alcohol use. No evidence for decompensated liver disease. Maintenance issues - - DVT prophylaxis - mechanical - GI prophylaxis - PPI - Nutrition - mechanical soft diet today, n.p.o. after midnight Disposition - anticipate discharge home after the hospital stay, hopefully in one or 2 days Dario George M.D.
[2016-12-16] MEDS: Mirabegron 25 MG Tab Extended Release PO SCH (09:10)
[2016-12-16] MEDS: Pantoprazole 40 MG Vial IV SCH ×2 (10:47→23:13)
[2016-12-16] MEDS: Acetaminophen 325 MG Tab PO PRN ×2 (14:04→18:59)
[2016-12-16] MEDS: Methocarbamol 500 MG Tab PO PRN (20:00)
[2016-12-17] MEDS: Carbidopa/Levodopa 25-100 MG Tab PO SCH ×5 (05:41→20:32)
[2016-12-17] MEDS ORDERED: Propofol 200 MG/20 ML SDV ONE (07:05)
[2016-12-17] MEDS: Tiotropium Inhaler 18 MCG Inhalation Powder Cap Kit of 5 INH SCH (08:02)
--- NOTE | 2016-12-17 08:55 | CR ---
Chest 1V Frontal HISTORY: cough COMPARISON: None FINDINGS: There is mild interstitial prominence bilaterally. This could represent mild fibrotic changes and sc arring. I cannot exclude early interstitial edema or nonspecific pneumonitis. Cardiomediastinal silh ouette is within normal limits. No vascular redistribution or pleural fluid can be seen. Bony struct ures and soft tissues are unremarkable. IMPRESSION: Mild nonspecific interstitial prominence as above. No other acute chest abnormality is identified.
[2016-12-17] MEDS: Tamsulosin 0.4 MG Cap.ER PO SCH (09:13)
[2016-12-17] MEDS: Propranolol 60 MG Cap.ER PO SCH (09:13)
[2016-12-17] MEDS: Donepezil 10 MG Tab PO SCH (09:13)
[2016-12-17] MEDS: Topiramate 25 MG Tab PO SCH ×2 (09:14→20:33)
[2016-12-17] MEDS: Mirabegron 25 MG Tab Extended Release PO SCH (09:17)
--- NOTE | 2016-12-17 10:36 | PCM.PN ---
- General Info Date of Service: 12/17/16 - Review of Systems General: Reports: Weakness. Denies: Fever, Chills Pulmonary: Reports: shortness of breath, cough, wheezing. Denies: pleuritic chest pain, sputum, hemoptysis Cardiovascular: Reports: Dyspnea on Exertion. Denies: Chest Pain, Palpitations , Orthopnea, PND, Edema Gastrointestinal: Reports: No symptoms. Denies: Hematochezia, Melena, Nausea, Vomiting Systems Review Comment:: This patient has remained stable over the past 24 hours with no further evidence of active bleeding. EGD performed this morning by Dr. Carolina has evidence of mild esophageal varices, healing esophagitis, and erosive gastritis. CLOtest was obtained and is pending at the time of this dictation. He also reports increased difficulty with breathing, he does have known COPD. History is of progressive shortness of breath but worse now while in the hospital. There is a history of ongoing cough productive of purulent-appearing sputum suggestive of chronic bronchitis. - Patient Data Vitals - most recent: Last Vital Signs Temp 95.9 F 12/17/16 07:53 Pulse 69 12/17/16 07:26 Resp 31 H 12/17/16 07:53 BP 175/79 H 12/17/16 07:53 Pulse Ox 93 L 12/17/16 07:53 Weight - most recent: 168 lb 12.8 oz I&O - last 24 hours: Intake & Output 12/16/16 12/17/16 12/17/16 22:59 06:59 14:59 Intake Total 1269 650 100 Output Total 300 Balance 1269 650 -200 Lab Results last 24 hrs: Laboratory Results - last 24 hr 12/16/16 12/17/16 12/17/16 Range/Units 15:00 05:00 05:00 WBC 7.5 (4.5-11.0) K/uL RBC 2.92 L (4.30-5.90) M/uL Hgb 9.4 L 8.9 L (12.0-15.0) g/dL Hct 28.0 L (40.0-54.0) % MCV 96 (80-98) fL MCH 31 (27-31) pg MCHC 32 (32-36) % Plt Count 152 (150-400) K/uL Sodium 144 (140-148) mmol/L Potassium 4.7 (3.6-5.2) mmol/L Chloride 111 H (100-108) mmol/L Carbon Dioxide 25 (21-32) mmol/L Anion Gap 12.7 (5.0-14.0) mmol/L BUN 23 H (7-18) mg/dL Creatinine 1.3 (0.8-1.3) mg/dL Est Cr Clr Drug Dosing 48.35 mL/min Estimated GFR (MDRD) 53 L (>60) Glucose 138 H (74-106) mg/dL Calcium 7.7 L (8.5-10.1) mg/dL Med Orders - Current: Current Medications Acetaminophen (Tylenol) 650 mg PO Q4H PRN PRN Reason: Pain (Mild 1-3)/fever Last Admin: 12/16/16 18:59 Dose: 650 mg Albuterol (Proventil Neb Soln) 2.5 mg NEB Q4H PRN PRN Reason: Shortness Of Breath/wheezing Last Admin: 12/17/16 07:49 Dose: 2.5 mg Carbidopa/Levodopa (Sinemet 25-100 Mg) 2 tab PO 5XDAY@0500,0930,1300 [facility] Last Admin: 12/17/16 09:14 Dose: 2 tab Carbidopa/Levodopa (Sinemet 25-100 Mg) 2 tab PO 5XDAY@1630,2100 [facility] Last Admin: 12/16/16 20:01 Dose: 2 tab Citalopram Hydrobromide (Celexa) 20 mg PO BEDTIME [facility] Last Admin: 12/16/16 19:59 Dose: 20 mg Donepezil HCl (Aricept) 10 mg PO DAILY [facility] Last Admin: 12/17/16 09:13 Dose: 10 mg Finasteride (Proscar) 5 mg PO BEDTIME [facility] Last Admin: 12/16/16 20:00 Dose: 5 mg Methocarbamol (Robaxin) 500 mg PO Q8H PRN PRN Reason: Muscle Spasm Last Admin: 12/16/16 20:00 Dose: 500 mg Mirabegron (Myrbetriq) 50 mg PO DAILY [facility] Last Admin: 12/17/16 09:17 Dose: 50 mg Ondansetron HCl (Zofran Odt) 4 mg PO Q6H PRN PRN Reason: Nausea able to take PO Ondansetron HCl (Zofran) 4 mg IV Q6H PRN PRN Reason: Nausea/Vomiting Propranolol HCl (Inderal La) 120 mg PO DAILY [facility] Last Admin: 12/17/16 09:13 Dose: 120 mg Sodium Chloride (Saline Flush) 10 ml FLUSH ONETIME PRN PRN Reason: per radiology protocol Last Admin: 12/15/16 20:55 Dose: 10 ml Tamsulosin HCl (Flomax) 0.4 mg PO DAILY [facility] Last Admin: 12/17/16 09:13 Dose: 0.4 mg Tiotropium [place] (Spiriva Handihaler) 18 mcg INH DAILYRT [facility] Last Admin: 12/17/16 08:02 Dose: 18 mcg Topiramate (Topamax) 25 mg PO BID [facility] Last Admin: 12/17/16 09:14 Dose: 25 mg Discontinued Medications Sodium Chloride (Normal Saline) 1,000 mls @ 250 mls/hr IV ASDIRECTED [facility] Last Admin: 12/15/16 19:17 Dose: 250 mls/hr Sodium Chloride (Normal Saline) 70 mls @ 3 mls/sec IV ASDIRECTED [facility] Last Admin: 12/15/16 20:55 Dose: 3 mls/sec Sodium Chloride (Normal Saline) 1,000 mls @ 125 mls/hr IV ASDIRECTED [facility] Last Admin: 12/16/16 00:18 Dose: 125 mls/hr Sodium Chloride (Normal Saline) 1,000 mls @ 50 mls/hr IV ASDIRECTED [facility] Last Admin: 12/17/16 07:46 Dose: 50 mls/hr Iopamidol (Isovue-300 (61%)) 100 ml IV . DIRECTED PRN PRN Reason: RADIOLOGY EXAM Stop: 12/16/16 20:09 Last Admin: 12/15/16 20:54 Dose: 100 ml Pantoprazole Sodium (Protonix Iv) 40 mg IV Q12H [facility] Last Admin: 12/16/16 00:18 Dose: 40 mg Pantoprazole Sodium (Protonix Iv) 40 mg IV Q12H [facility] Last Admin: 12/16/16 23:13 Dose: 40 mg Propofol (Diprivan 20 Ml) Confirm Administered Dose 200 mg .ROUTE .STK-MED ONE Stop: 12/17/16 07:06 - Exam General: alert, oriented, cooperative, no acute distress Lungs: Decreased breath sounds, Wheezing. No: Crackles, Rales, Rhonchi, Rub, Stridor Cardiovascular: Regular Rate, Regular Rhythm, No Murmurs Abdomen: bowel sounds present, soft, no tenderness, no distension Extremities: no edema Skin: warm, dry, intact - Problem List Review Problem List Initiated/Reviewed/Updated: Yes - My Orders Last 24 Hours: My Active Orders 12/17/16 10:32 RT Aerosol Therapy [RC] ASDIRECTED Vital Signs [RC] Q4H Convert IV to Saline Lock [OM.PC] Routine 12/17/16 10:45 Doxycycline [Vibramycin] 100 mg PO Q12H 12/17/16 11:00 Albuterol/Ipratropium [DuoNeb 3.0-0.5 MG/3 ML] 3 ml NEB QIDRT 12/17/16 16:30 Pantoprazole [ProTONIX] 40 mg PO BIDAC 12/18/16 05:00 BASIC METABOLIC PANEL,BMP [CHEM] Timed CBC WITH AUTO DIFF [HEME] Timed - Plan Plan:: Assessment and plan - Acute gastrointestinal hemorrhage with acute blood loss anemia - no further evidence of active bleeding over the past 24 hours. EGD performed this morning shows evidence of esophagitis and gastritis but no active bleeding or blood noted on the endoscopy. -Twice daily proton pump inhibitor -Saline lock IV -Serial hemoglobin levels -cardiac monitoring -Plan for upper endoscopy on Saturday with Dr. Carolina ([id number]) COPD with increased shortness of [id number] history of tobacco use although does not currently smoke. Ongoing difficulty with chronic cough productive of sputum and purulent-appearing sputum suggestive of chronic bronchitis. -Doxycycline 100 mg by mouth twice a day -Duo nebs 4 times a day Advanced Parkinson's disease - declining functional status over the past 2 years. Still has a pretty good quality of life. -Continue home medications Cirrhosis - noted on CT scan, history of alcohol use. No evidence for decompensated liver disease. Maintenance issues - - DVT prophylaxis - mechanical - GI prophylaxis - PPI - Nutrition - mechanical soft diet today, n.p.o. after midnight Disposition - anticipate discharge home after the hospital stay, hopefully in one or 2 days
[2016-12-17] MEDS: Albuterol/Ipratropium 3.0-0.5 MG/3 ML Neb Soln NEB SCH ×3 (10:59→20:39)
[2016-12-17] MEDS: Pantoprazole 40 MG Tab.CR PO SCH ×2 (11:29→16:12)
[2016-12-17] MEDS: Doxycycline 100 MG Cap PO SCH ×2 (11:30→20:33)
[2016-12-17] MEDS: Acetaminophen 325 MG Tab PO PRN ×2 (13:20→22:59)
[2016-12-17] MEDS: Finasteride 5 MG Tab PO SCH (20:31)
[2016-12-17] MEDS: Citalopram 20 MG Tab PO SCH (20:31)
[2016-12-17] MEDS: Methocarbamol 500 MG Tab PO PRN (22:59)
[2016-12-18] MEDS: Carbidopa/Levodopa 25-100 MG Tab PO SCH ×3 (04:48→13:14)
[2016-12-18] MEDS: Acetaminophen 325 MG Tab PO PRN ×2 (05:05→15:21)
[2016-12-18] MEDS: Albuterol/Ipratropium 3.0-0.5 MG/3 ML Neb Soln NEB SCH ×3 (07:22→14:39)
[2016-12-18] MEDS: Tiotropium Inhaler 18 MCG Inhalation Powder Cap Kit of 5 INH SCH (07:26)
[2016-12-18] MEDS: Pantoprazole 40 MG Tab.CR PO SCH (07:35)
[2016-12-18] MEDS: Tamsulosin 0.4 MG Cap.ER PO SCH (10:12)
[2016-12-18] MEDS: Propranolol 60 MG Cap.ER PO SCH (10:12)
[2016-12-18] MEDS: Donepezil 10 MG Tab PO SCH (10:12)
[2016-12-18] MEDS: Doxycycline 100 MG Cap PO SCH (10:13)
[2016-12-18] MEDS: Topiramate 25 MG Tab PO SCH (10:13)
[2016-12-18] MEDS: Mirabegron 25 MG Tab Extended Release PO SCH (10:13)
[2016-12-18 13:18] VITALS: BP 137/77
--- NOTE | 2016-12-18 15:56 | PCM.DCSUM1 ---
Discharge Summary - Hospital Course Brief History: This patient is a 80-year-old gentleman who was admitted through the emergency room for management of his acute upper GI bleed with acute blood loss anemia. - Discharge Data Discharge Date: 12/18/16 Discharge Disposition: Home, Self-Care 01 Condition: Fair - Discharge Diagnosis/Problem(s) (1) Acute blood loss anemia SNOMED Code(s): 596182187 ICD Code: D62 - ACUTE POSTHEMORRHAGIC ANEMIA Status: Acute Current Visit : Yes (2) Acute gastrointestinal hemorrhage SNOMED Code(s): 67428286 ICD Code: K92.2 - GASTROINTESTINAL HEMORRHAGE, UNSPECIFIED Status: Acute Current Visit: Yes (3) Parkinsons disease SNOMED Code(s): 95760423 ICD Code: G20 - PARKINSON'S DISEASE Status: Chronic Current Visit: Yes (4) Esophagitis SNOMED Code(s): 68665549 ICD Code: K20.9 - ESOPHAGITIS, UNSPECIFIED Status: Acute Current Visit: Yes - Patient Summary/Data Hospital Course: This patient is a 80-year-old gentleman who was admitted through the emergency department with a history of epigastric abdominal pain, progressive weakness and shortness of breath, and melenic stools. Hemoglobin was found to be low at the time of admission and it dropped significantly since his last outpatient hemoglobin level. He was given IV fluids for hydration and started on proton pump inhibitor therapy with Protonix 40 mg IV twice daily. Through his hospital course there was no further evidence of active GI bleeding. Dr. Carolina was consulted and an EGD performed, it showed mild esophageal varices, healing esophagitis and erosive gastritis. There was no active bleeding noted at the time of upper GI endoscopy. He was continued on his Parkinson medications during the hospital stay in his Parkinson's disease remained stable. He did report some increased shortness of breath from baseline, he does have a long- standing smoking history although stopped smoking several years ago. Associated with the shortness of breath has been a cough productive of colored sputum. Was felt that he likely has an element of chronic bronchitis and was started on oral antibiotic therapy with doxycycline. By the time of discharge his symptoms of shortness of breath had improved and were almost back to baseline. Oxygen level was within the desired range on room air and it was determined that he will not require supplemental oxygen at the time of discharge. Activity will be as tolerated and he will resume his usual diet. On discharge she will be placed on Protonix 40 mg twice daily for 10 days and then once daily thereafter. Followup appointment will be scheduled with his primary care provider within one week. - Patient Instructions Diet: Usual Diet as Tolerated Activity: As Tolerated Other/Special Instructions: Schedule followup appointment with primary care provider Dr. Dowd within one week. - Discharge Plan Prescriptions/Med Rec: Doxycycline Calcium [IMW: Doxycycline] 100 mg PO BID #18 capsule Pantoprazole [ProTONIX] 40 mg PO BIDAC #30 tab.cr Home Medications: Home Meds Aspirin [Halfprin] 81 mg PO DAILY 11/29/15 [History] Betamethasone/Propylene Glyc [Diprolene 0.05%] 1 applic TP BID 11/29/15 [History ] Bisacodyl [Dulcolax] 10 mg RC ASDIRECTED PRN 11/29/15 [History] Budesonide/Formoterol [Symbicort 160-4.5 MCG] 2 puff IH BID 11/29/15 [History] Carbidopa/Levodopa [Sinemet 25-100 mg Tablet] 2 tab PO QID 11/29/15 [History] Cholecalciferol (Vitamin D3) [Vitamin D3] 2,000 unit PO DAILY 11/29/15 [History] Citalopram Hydrobromide [Celexa] 20 mg PO DAILY 11/29/15 [History] Donepezil HCl [Aricept] 10 mg PO DAILY 11/29/15 [History] Glucosamine [Glucosamine Sulfate] 500 mg PO BID 11/29/15 [History] [place]-3S/DHA/Epa/Fish Oil [[place]-3 Fish Oil 1,000 mg Sfgl] 1 tab PO BID [History] Propranolol HCl [Inderal LA] 120 mg PO DAILY 11/29/15 [History] Tamsulosin HCl [Flomax] 0.4 mg PO DAILY 11/29/15 [History] Tiotropium [Spiriva HandiHaler] 1 cap INH DAILY 11/29/15 [History] Topiramate [Topamax] 25 mg PO BID 11/29/15 [History] Triamcinolone Acetonide [Kenalog 0.1% Crm] 1 applic TOP TID 11/29/15 [History] Finasteride [Proscar] 5 mg PO DAILY 08/29/16 [History] Mirabegron [Myrbetriq] 50 mg PO DAILY 08/29/16 [History] Multivitamin W-Minerals/Lutein [Vision Plus Lutein Vitamin] 1 each PO DAILY [History] Ubidecarenone [Co Q-10] 100 mg PO DAILY 08/29/16 [History] Methocarbamol [Robaxin] 500 mg PO Q8H PRN 12/15/16 [History] Albuterol Sulfate [Ventolin Hfa] 1 inh INH ASDIRECTED PRN 12/16/16 [History] Doxycycline Calcium [IMW: Doxycycline] 100 mg PO BID #18 capsule 12/18/16 [Rx] Pantoprazole [ProTONIX] 40 mg PO BIDAC #30 tab.cr 12/18/16 [Rx] Referrals: Roman Dowd MD [Primary Care Provider] - - Patient Data Vitals - Most Recent: Last Vital Signs Temp 97.3 F 12/18/16 13:15 Pulse 78 12/18/16 14:40 Resp 12 12/18/16 13:15 BP 137/77 12/18/16 13:15 Pulse Ox 90 L 12/18/16 13:15 Weight - Most Recent: 168 lb 12.8 oz I&O - Last 24 hours: Intake & Output 12/18/16 12/18/16 12/18/16 06:59 14:59 22:59 Intake Total 120 100 Balance 120 100 Lab Results - Last 24 hrs: Laboratory Results - last 24 hr 12/18/16 12/18/16 Range/Units 04:33 04:33 WBC 6.5 (4.5-11.0) K/uL RBC 2.88 L (4.30-5.90) M/uL Hgb 8.8 L (12.0-15.0) g/dL Hct 27.7 L (40.0-54.0) % MCV 96 (80-98) fL MCH 31 (27-31) pg MCHC 32 (32-36) % Plt Count 154 (150-400) K/uL Neut % (Auto) 64 (36-66) % Lymph % (Auto) 24 (24-44) % [place] % (Auto) 9 H (2-6) % Eos % (Auto) 3 (2-4) % Baso % (Auto) 0 (0-1) % Sodium 144 (140-148) mmol/L Potassium 4.4 (3.6-5.2) mmol/L Chloride 112 H (100-108) mmol/L Carbon Dioxide 25 (21-32) mmol/L Anion Gap 11.4 (5.0-14.0) mmol/L BUN 21 H (7-18) mg/dL Creatinine 1.3 (0.8-1.3) mg/dL Est Cr Clr Drug Dosing 48.35 mL/min Estimated GFR (MDRD) 53 L (>60) Glucose 125 H (74-106) mg/dL Calcium 7.7 L (8.5-10.1) mg/dL RAISA Results - Last 24 hrs: Microbiology 12/17/16 07:00 CLOtest - Final Stomach NEGATIVE CLOTEST Med Orders - Current: Current Medications Acetaminophen (Tylenol) 650 mg PO Q4H PRN PRN Reason: Pain (Mild 1-3)/fever Last Admin: 12/18/16 15:21 Dose: 650 mg Albuterol (Proventil Neb Soln) 2.5 mg NEB Q4H PRN PRN Reason: Shortness Of Breath/wheezing Last Admin: 12/17/16 07:49 Dose: 2.5 mg Albuterol/Ipratropium (Duoneb 3.0-0.5 Mg/3 Ml) 3 ml NEB QIDRT [facility] Last Admin: 12/18/16 14:39 Dose: 3 ml Carbidopa/Levodopa (Sinemet 25-100 Mg) 2 tab PO 5XDAY@0500,0930,1300 [facility] Last Admin: 12/18/16 13:14 Dose: 2 tab Carbidopa/Levodopa (Sinemet 25-100 Mg) 2 tab PO 5XDAY@1630,2100 [facility] Last Admin: 12/17/16 20:32 Dose: 2 tab Citalopram Hydrobromide (Celexa) 20 mg PO BEDTIME [facility] Last Admin: 12/17/16 20:31 Dose: 20 mg Donepezil HCl (Aricept) 10 mg PO DAILY [facility] Last Admin: 12/18/16 10:12 Dose: 10 mg Doxycycline Hyclate (Vibramycin) 100 mg PO BID [facility] Last Admin: 12/18/16 10:13 Dose: 100 mg Finasteride (Proscar) 5 mg PO BEDTIME [facility] Last Admin: 12/17/16 20:31 Dose: 5 mg Methocarbamol (Robaxin) 500 mg PO Q8H PRN PRN Reason: Muscle Spasm Last Admin: 12/17/16 22:59 Dose: 500 mg Mirabegron (Myrbetriq) 50 mg PO DAILY [facility] Last Admin: 12/18/16 10:13 Dose: 50 mg Ondansetron HCl (Zofran Odt) 4 mg PO Q6H PRN PRN Reason: Nausea able to take PO Ondansetron HCl (Zofran) 4 mg IV Q6H PRN PRN Reason: Nausea/Vomiting Pantoprazole Sodium (Protonix) 40 mg PO BIDAC [facility] Last Admin: 12/18/16 07:35 Dose: 40 mg Propranolol HCl (Inderal La) 120 mg PO DAILY [facility] Last Admin: 12/18/16 10:12 Dose: 120 mg Sodium Chloride (Saline Flush) 10 ml FLUSH ONETIME PRN PRN Reason: per radiology protocol Last Admin: 12/15/16 20:55 Dose: 10 ml Tamsulosin HCl (Flomax) 0.4 mg PO DAILY [facility] Last Admin: 12/18/16 10:12 Dose: 0.4 mg Tiotropium [place] (Spiriva Handihaler) 18 mcg INH DAILYRT [facility] Last Admin: 12/18/16 07:26 Dose: 18 mcg Topiramate (Topamax) 25 mg PO BID [facility] Last Admin: 12/18/16 10:13 Dose: 25 mg Discontinued Medications Sodium Chloride (Normal Saline) 1,000 mls @ 250 mls/hr IV ASDIRECTED [facility] Last Admin: 12/15/16 19:17 Dose: 250 mls/hr Sodium Chloride (Normal Saline) 70 mls @ 3 mls/sec IV ASDIRECTED [facility] Last Admin: 12/15/16 20:55 Dose: 3 mls/sec Sodium Chloride (Normal Saline) 1,000 mls @ 125 mls/hr IV ASDIRECTED [facility] Last Admin: 12/16/16 00:18 Dose: 125 mls/hr Sodium Chloride (Normal Saline) 1,000 mls @ 50 mls/hr IV ASDIRECTED [facility] Last Admin: 12/17/16 07:46 Dose: 50 mls/hr Iopamidol (Isovue-300 (61%)) 100 ml IV . DIRECTED PRN PRN Reason: RADIOLOGY EXAM Stop: 12/16/16 20:09 Last Admin: 12/15/16 20:54 Dose: 100 ml Pantoprazole Sodium (Protonix Iv) 40 mg IV Q12H [facility] Last Admin: 12/16/16 00:18 Dose: 40 mg Pantoprazole Sodium (Protonix Iv) 40 mg IV Q12H [facility] Last Admin: 12/16/16 23:13 Dose: 40 mg Propofol (Diprivan 20 Ml) Confirm Administered Dose 200 mg .ROUTE .STK-MED ONE Stop: 12/17/16 07:06 *Q Meaningful Use (DIS) - VTE *Q VTE Criteria *Q: VTE Pharmacological Contraindications *Q: Active Hemorrhage - Stroke *Q Stroke Criteria *Q: - AMI *Q AMI Criteria *Q:
--- NOTE | 2016-12-20 08:29 | PN ---
DATE OF SERVICE: 12/18/2016 The patient had no further signs of bleeding. Hemoglobin was essentially stable overnight. We will continue ferry terminal agent use of proton pump inhibitors and the patient probably will be discharged home later today. Willie Carolina MD /[id number]
--- NOTE | 2016-12-21 08:58 | OR ---
DATE OF PROCEDURE: 12/17/2016 PREOPERATIVE DIAGNOSIS: Probable upper gastrointestinal bleeding. POSTOPERATIVE DIAGNOSES: 1. Probable recent upper gastrointestinal bleeding associated with:. a. Moderate-sized esophageal varices (not associated with any esophagitis or likelihood of variceal bleeding). b. Healing distal esophagitis and erosive gastritis (likely sources of recent GI bleeding). OPERATIVE PROCEDURE: Upper GI endoscopy with biopsy of the antrum for CLOtest. ANESTHESIA: IV sedation. INDICATION FOR PROCEDURE: A 80-year-old presenting with striking anemia with hemoglobin down in the 6 range. He was noted by history to have a period of black stools and then some bloody stools. He does have history of alcoholic cirrhosis, and there is some concern regarding esophageal varices, although the pace of the bleeding would not be consistent with that presentation. The patient was admitted on 12/15/16, has been on proton pump inhibitors, and now has been transfused up to a hemoglobin in the 9 range. Plan is to proceed with upper endoscopy with biopsies as indicated. Potential risks including bleeding and perforation were discussed, and the patient wishes to proceed. DETAILS OF PROCEDURE: The patient was taken to the operating room and placed in left lateral decubitus position. IV sedation was administered, after which the upper GI endoscope was passed orally through the length of esophagus into the stomach with retroflexion view of the fundus, thereafter through the pyloric channel, and into the proximal duodenum. Findings included normal hypopharynx, larynx, upper esophageal sphincter. Within the esophageal body in the distal half, there were some esophageal varices. These were moderately sized. At no point were there any varices with any overlying mucosal inflammatory changes, and the varices clearly were not a source of recent bleeding. At the EG junction, there was some mild excoriation consistent with some esophagitis. Due to the varices in the area, we opted not to biopsy that region. The patient did have some gastric varices primarily in the proximal body and fundus, but that region of stomach did not have any significant mucosal inflammation. There was some healing erosive gastritis present within the antrum, but those areas were covered with some fibrinous exudate. Given the presence of fibrinous exudate over those areas, these are more likely the recent bleeding source. The pyloric channel and duodenum at the junction of the 3rd and 4th portions were unremarkable. At this point, biopsies were obtained from the antrum and sent for CLOtest for H. pylori. Minimal bleeding from the biopsy site was seen and the procedure concluded. The patient was taken to the recovery room in satisfactory condition. At this point, we will continue to manage the patient with proton pump inhibitors. He should probably remain on those for the duration of his life, to minimize problems with GI bleeding. Willie Carolina MD /[id number]
== END 2016-12-18 16:00 | disposition home or self-care (01) | DRG 378 ==
LOC: JP.ED 17:42 → JP.ICU 22:26 → UNDOADMIN 22:26 → JP.ICU 12-17 17:25 → JP.MS 12-17 17:25 → UNDODISIN 12-18 16:00
PROVIDERS: ADMIT Internal Medicine; ATTEND Hospitalist
PROC: 30233N1 Transfusion of Nonautologous Red Blood Cells into Peripheral Vein, Percutaneous Approach (ICD-10-PCS; principal; 2016-12-16)
PROC: 0DB68ZX Excision of Stomach, Via Natural or Artificial Opening Endoscopic, Diagnostic (ICD-10-PCS; 2016-12-17)
DX: K29.61 Other gastritis with bleeding (principal); D62 Acute posthemorrhagic anemia; K76.6 Portal hypertension; G20 Parkinson's disease; J44.9 Chronic obstructive pulmonary disease, unspecified; K74.60 Unspecified cirrhosis of liver; F10.21 Alcohol dependence, in remission; Z87.891 Personal history of nicotine dependence; N40.0 Benign prostatic hyperplasia without lower urinary tract symptoms; K59.09 Other constipation; M54.9 Dorsalgia, unspecified; G89.29 Other chronic pain; I85.00 Esophageal varices without bleeding; K20.8 Other esophagitis; K22.8 Other specified diseases of esophagus
CPT/HCPCS: 36415; 71010 ×2; 74177; 80053; 81001; 83605; 83880; 84484; 85025; 85379; 85610; 86140; 86850; 86900; 86901; 86920; 86922; 87804 ×2; 93005 ×2; 96360; 96361; 99285; J7030; J7040; J7050; Q9967; 36430; 80048; 85018; 85027; 87081; 93010; 94640-76; 94664; A9270-GY; C9113; J2704; J7620; P9016

== ENCOUNTER 2017-03-29 11:04 | Emergency (ER) | payer MEDICARE, BC ==
--- NOTE | 2017-03-29 12:04 | EDM.PDOC ---
ED HPI GENERAL MEDICAL PROBLEM - General Chief Complaint: Respiratory Problem Stated Complaint: SHORT OF BREATH Time Seen by Provider: 03/29/17 11:50 Source of Information: Reports: Patient, Family, Old Records History Limitations: Reports: No Limitations - History of Present Illness INITIAL COMMENTS - FREE TEXT/NARRATIVE: 81 yo male presents after a nearly resolved episode this morning at rest of SOB. He had some chest tightness and wheezing at the time, used his inhalers and did not get relief like he normally would. He denies fever. Had a coughing spell with this episode. Was recently tx'd for anemia and pneumonia. Has known chronic lung dz, is not on home oxygen. Went to the clinic and was referred to the ER. He is wearing a heart monitor and called after the episode and was told the monitor had not picked anything up. Had not eaten or drank anything today before this spell. Reports some recent pleuritic L upper chest pain recently, not currently present. 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 Treatments Back Pain Score (Numeric/FACES): 6 - Related Data Allergies Allergy/AdvReac Type Severity Reaction Status Date / Time Penicillins Allergy Cannot Verified 03/29/17 11:26 Remember Home Meds: Home Meds Aspirin [Halfprin] 81 mg PO DAILY 11/29/15 [History] Budesonide/Formoterol [Symbicort 160-4.5 MCG] 2 puff IH BID 11/29/15 [History] Carbidopa/Levodopa [Sinemet 25-100 mg Tablet] 1 tab PO QID 11/29/15 [History] Cholecalciferol (Vitamin D3) [Vitamin D3] 2,000 unit PO DAILY 11/29/15 [History] Citalopram Hydrobromide [Celexa] 20 mg PO DAILY 11/29/15 [History] Donepezil HCl [Aricept] 10 mg PO DAILY 11/29/15 [History] Glucosamine [Glucosamine Sulfate] 500 mg PO DAILY 11/29/15 [History] [place]-3S/DHA/Epa/Fish Oil [[place]-3 Fish Oil 1,000 mg Sfgl] 1 tab PO BID [History] Propranolol HCl [Inderal LA] 120 mg PO DAILY 11/29/15 [History] Tamsulosin HCl [Flomax] 0.4 mg PO DAILY 11/29/15 [History] Tiotropium [Spiriva HandiHaler] 1 cap INH DAILY 11/29/15 [History] Triamcinolone Acetonide [Kenalog 0.1% Crm] 1 applic TOP TID 11/29/15 [History] Finasteride [Proscar] 5 mg PO DAILY 08/29/16 [History] Multivitamin W-Minerals/Lutein [Vision Plus Lutein Vitamin] 1 each PO DAILY [History] Ubidecarenone [Co Q-10] 100 mg PO BID 08/29/16 [History] Albuterol Sulfate [Ventolin Hfa] 2 puff INH Q6H PRN 12/16/16 [History] Azithromycin [IJD: Azithromycin] 250 mg PO DAILY #6 tab 03/29/17 [Rx] Prednisone [IJD: Prednisone] 20 mg PO BID #20 tab 03/29/17 [Rx] Topiramate 1 tab PO BID 03/29/17 [History] Past Medical History HEENT History: Reports: Cataract Respiratory History: Reports: COPD, SOB Gastrointestinal History: Reports: Chronic Constipation, Cirrhosis Genitourinary History: Reports: BPH Musculoskeletal History: Reports: Back Pain, Chronic, Fracture Other Musculoskeletal History: left leg in college Neurological History: Reports: Parkinson's Hematologic History: Reports: Anemia Dermatologic History: Reports: Other (See Below) Other Dermatologic History: skin rash - Infectious Disease History Infectious Disease History: Reports: Chicken Pox, Measles, Mumps, Rheumatic Fever - Past Surgical History HEENT Surgical History: Reports: Cataract Surgery GI Surgical History: Reports: Colonoscopy, EGD, Hernia, Inguinal Social & Family History - Tobacco Use Smoking Status *Q: Former Smoker Years of Tobacco use: 48 Used Tobacco, but Quit: Yes Month Tobacco Last Used: 2006 Second Hand Smoke Exposure: No - Caffeine Use Caffeine Use: Reports: Coffee - Alcohol Use Days Per Week of Alcohol Use: 0 - Recreational Drug Use Recreational Drug Use: No ED ROS GENERAL - Review of Systems Review Of Systems: See Below Constitutional: Denies: Fever, Chills, Diaphoresis HEENT: Reports: No Symptoms Respiratory: Reports: Shortness of Breath, Wheezing, Cough. Denies: Pleuritic Chest Pain, Sputum, Hemoptysis Cardiovascular: Reports: Other (chest tightness) GI/Abdominal: Reports: No Symptoms : Reports: No Symptoms Musculoskeletal: Reports: No Symptoms Skin: Reports: No Symptoms Neurological: Reports: No Symptoms Psychiatric: Reports: No Symptoms ED EXAM, GENERAL - Physical Exam Exam: See Below Exam Limited By: No Limitations General Appearance: Alert, WD/WN, No Apparent Distress Eye Exam: Bilateral Eye: Normal Inspection Ears: Normal External Exam, Normal Canal, Hearing Grossly Normal Ear Exam: Bilateral Ear: Auricle Normal, Canal Normal Nose: Normal Inspection, Normal Mucosa, No Blood Throat/Mouth: Normal Inspection, Normal Lips, Normal Teeth, Normal Oropharynx, Normal Voice, No Airway Compromise Head: Atraumatic, Normocephalic Neck: Normal Inspection, Supple, Non-Tender Respiratory/Chest: No Respiratory Distress, No Accessory Muscle Use, Crackles ( diffusely). No: Respiratory Distress Cardiovascular: Regular Rate, Rhythm GI/Abdominal: Normal Bowel Sounds, Soft, Non-Tender, No Distention Back Exam: Normal Inspection, Full Range of Motion. No: CVA Tenderness (R), CVA Tenderness (L) Extremities: Non-Tender, Pedal Edema (bilaterally below the knees.) Neurological: Alert, Oriented, CN II-XII Intact, Normal Cognition, No Motor/ Sensory Deficits Psychiatric: Normal Affect, Normal Mood Skin Exam: Warm, Dry, Intact, Normal Color, No Rash Lymphatic: No Adenopathy Course - Vital Signs Text/Narrative:: oxygen per NC given with relief, saline lock, Duoneb-slight benefit only CXR-focal areas of consolidation in the L lung near the apex, base and mid lung berry, new since last CXR. Some old fibrotic changes. Patient was laid flat and this did not make his dyspnea worse. Was ambulated without oxygen to document his sats with activity. NS [address]- Last Recorded V/S: Last Vital Signs Temp 37.1 C 03/29/17 13:41 Pulse 68 03/29/17 13:41 Resp 16 03/29/17 13:41 BP 130/71 03/29/17 13:41 Pulse Ox 90 L 03/29/17 13:41 - Orders/Labs/Meds Orders: Active Orders 24 hr Category Date Time Status Oxygen Therapy Adult [Oxygen Therapy] [RC] ASDIRECTED Care 03/29/17 11:56 Active RT Aerosol Therapy [RC] ASDIRECTED Care 03/29/17 12:51 Active Sodium Chloride 0.9% [Saline Flush] Med 03/29/17 12:48 Active 10 ml FLUSH ASDIRECTED PRN Saline Lock Insert [OM.PC] Routine Oth 03/29/17 12:48 Ordered Medication Orders Sodium Chloride (Saline Flush) 10 ml FLUSH ASDIRECTED PRN PRN Reason: Keep Vein Open Labs: Laboratory Tests 03/29/17 03/29/17 03/29/17 Range/Units 12:07 12:07 12:07 WBC 9.0 (4.5-11.0) K/uL RBC 3.14 L (4.30-5.90) M/uL Hgb 9.3 L (12.0-15.0) g/dL Hct 29.5 L (40.0-54.0) % MCV 94 (80-98) fL MCH 30 (27-31) pg MCHC 32 (32-36) % Plt Count 163 (150-400) K/uL Sodium 137 L (140-148) mmol/L Potassium 5.3 H (3.6-5.2) mmol/L Chloride 103 (100-108) mmol/L Carbon Dioxide 28 (21-32) mmol/L Anion Gap 11.3 (5.0-14.0) mmol/L BUN 27 H (7-18) mg/dL Creatinine 1.5 H (0.8-1.3) mg/dL Est Cr Clr Drug Dosing 41.23 mL/min Estimated GFR (MDRD) 45 L (>60) Glucose 175 H (74-106) mg/dL Calcium 8.2 L (8.5-10.1) mg/dL Troponin I < 0.017 (0.000-0.056) ng/mL [id number] Pept 4136 H (5-450) pg/mL Meds: Medications Generic Name Dose Route Start Last Admin Trade Name Freq PRN Reason Stop Dose Admin Sodium Chloride 10 ml 03/29/17 12:48 Saline Flush FLUSH ASDIRECTED PRN Keep Vein Open Discontinued Medications Generic Name Dose Route Start Last Admin Trade Name Freq PRN Reason Stop Dose Admin Albuterol/Ipratropium 3 ml 03/29/17 12:51 03/29/17 13:08 Duoneb 3.0-0.5 Mg/3 Ml NEB 03/29/17 12:52 3 ml ONETIME ONE Administration Sodium Chloride 500 mls @ 1,000 mls/hr 03/29/17 13:58 03/29/17 14:43 Normal Saline IV 03/29/17 14:27 1,000 mls/hr .BOLUS ONE Administration Sodium Chloride 100 mls @ 3.5 mls/sec 03/29/17 14:15 03/29/17 14:34 Normal Saline IV 03/29/17 15:00 3.5 mls/sec ASDIRECTED ULISES Administration Iopamidol 100 ml 03/29/17 14:14 03/29/17 14:34 Isovue-300 (61%) IV 03/29/17 15:00 100 ml . DIRECTED PRN Administration RADIOLOGY EXAM Departure - Departure Time of Disposition: 15:30 Disposition: Home, Self-Care 01 Condition: Fair Clinical Impression: Hypoxia, COPD exacerbation, Lung infection, Elevated brain natriuretic peptide (BNP) level - Discharge Information Prescriptions: Azithromycin [IJD: Azithromycin] 250 mg PO DAILY #6 tab Prednisone [IJD: Prednisone] 20 mg PO BID #20 tab Referrals: Roman Dowd MD [Primary Care Provider] - Forms: ED Department Discharge Additional Instructions: Continue your usual meds. Take prednisone and azithromycin as directed until gone. Use oxygen around the clock at 2 liters/min/nasal cannula. Recheck next week in the clinic, call for an appt. Return if worse. - My Orders Last 24 Hours: My Active Orders 03/29/17 11:56 Oxygen Therapy Adult [Oxygen Therapy] [RC] ASDIRECTED 03/29/17 12:48 Sodium Chloride 0.9% [Saline Flush] 10 ml FLUSH ASDIRECTED PRN Saline Lock Insert [OM.PC] Routine 03/29/17 12:51 RT Aerosol Therapy [RC] ASDIRECTED - Assessment/Plan Last 24 Hours: My Active Orders 03/29/17 11:56 Oxygen Therapy Adult [Oxygen Therapy] [RC] ASDIRECTED 03/29/17 12:48 Sodium Chloride 0.9% [Saline Flush] 10 ml FLUSH ASDIRECTED PRN Saline Lock Insert [OM.PC] Routine 03/29/17 12:51 RT Aerosol Therapy [RC] ASDIRECTED
[2017-03-29] MEDS ORDERED: Sodium Chloride 0.9% 10 ML Syringe FLUSH PRN (12:48)
--- NOTE | 2017-03-29 12:49 | CR ---
Chest 2V INDICATION: SOB FINDINGS: Comparison 12/15/2016. Hyperinflation. New focal opacity in the left lung apex, as well as n odular opacities in the left perihilar region. Stable chronic interstitial changes in the lung bases . New blunting of the costophrenic angles consistent with a small amount of pleural fluid or pleural thickening. Follow-up chest x-ray in 4-6 weeks recommended. Findings discussed with Dr. Merrill in person at 12:45 PM on 03/29/2017.
[2017-03-29] MEDS ORDERED: Albuterol/Ipratropium 3.0-0.5 MG/3 ML Neb Soln NEB ONE (12:51)
[2017-03-29] MEDS ORDERED: Sodium Chloride 0.9% 500 ML IV ONE (13:58)
[2017-03-29] MEDS ORDERED: Iopamidol 612 MG/ML 100 ML Bottle IV PRN (14:14)
[2017-03-29] MEDS ORDERED: Sodium Chloride 0.9% 100 ML IV SCH (14:15)
--- NOTE | 2017-03-29 14:57 | CT ---
Chest w Cont Total DLP 218 mGycm. INDICATION: abnormal CXR, hypoxia COMPARISON: Chest x-ray from earlier today FINDINGS: Patchy mixed groundglass and airspace opacities in both lungs, most marked in the left upp er lobe. Small bilateral pleural effusions. Heart size at the upper limits of normal. Findings are m ost likely infectious or inflammatory. Mildly enlarged mediastinal and bilateral hilar lymph nodes a re likely reactive. No evidence for acute pulmonary artery embolism. Cirrhotic configuration of the liver with splenic and periesophageal varices suggests cirrhosis and portal venous hypertension. Exa m otherwise unremarkable. IMPRESSION: 1. Patchy bilateral infiltrates with adenopathy and small effusions. Findings are most likely infect ious or inflammatory. However, follow-up CT chest in 4-6 weeks is recommended to exclude underlying mass. 2. Cirrhosis with portal venous hypertension. Findings discussed with Dr. Merrill by telephone at 2:55 PM on 03/29/2017.
[2017-03-29 15:10] VITALS: BP 136/53
== END 2017-03-29 16:10 | disposition home or self-care (01) ==
LOC: JP.ED 11:04
DX: J44.1 Chronic obstructive pulmonary disease with (acute) exacerbation (principal); R09.02 Hypoxemia; J18.9 Pneumonia, unspecified organism; R79.89 Other specified abnormal findings of blood chemistry; G20 Parkinson's disease; Z88.0 Allergy status to penicillin; Z79.899 Other long term (current) drug therapy; Z86.2 Personal history of diseases of the blood and blood-forming organs and certain disorders involving the immune mechanism; Z98.49 Cataract extraction status, unspecified eye; Z87.891 Personal history of nicotine dependence
CPT/HCPCS: 36415; 71020; 71260; 80048; 83880; 84484; 85027; 94640; 96360; 99285; J7030; J7040; J7620; Q9967

== ENCOUNTER 2017-04-17 14:56 | Emergency (ER) | payer MEDICARE, BC ==
--- NOTE | 2017-04-17 16:40 | EDM.PDOC ---
ED HPI GENERAL MEDICAL PROBLEM - General Chief Complaint: General Stated Complaint: BACK PAIN/WEAK Time Seen by Provider: 04/17/17 16:23 Source of Information: Reports: Patient, Family, Old Records, RN Notes Reviewed History Limitations: Reports: No Limitations - History of Present Illness INITIAL COMMENTS - FREE TEXT/NARRATIVE: 81-year-old gentleman presents emergency department day complaint of generalized weakness, he has a known history of chronic obstructive pulmonary disease with Parkinson's, states over the last several days he's been progressively more weak and feels short of breath particularly when he exerts himself he also complains of generalized muscle pain and stiffness in the neck ankles legs arms back, denies any fevers no change in bowel habits no chest pain. Back Pain Score (Numeric/FACES): 4 - Related Data Allergies Allergy/AdvReac Type Severity Reaction Status Date / Time Penicillins Allergy Cannot Verified 04/17/17 15:36 Remember Home Meds: Home Meds Aspirin [Halfprin] 81 mg PO DAILY 11/29/15 [History] Budesonide/Formoterol [Symbicort 160-4.5 MCG] 2 puff IH BID 11/29/15 [History] Carbidopa/Levodopa [Sinemet 25-100 mg Tablet] 1 tab PO QID 11/29/15 [History] Cholecalciferol (Vitamin D3) [Vitamin D3] 2,000 unit PO DAILY 11/29/15 [History] Citalopram Hydrobromide [Celexa] 20 mg PO DAILY 11/29/15 [History] Donepezil HCl [Aricept] 10 mg PO DAILY 11/29/15 [History] Glucosamine [Glucosamine Sulfate] 500 mg PO DAILY 11/29/15 [History] [place]-3S/DHA/Epa/Fish Oil [[place]-3 Fish Oil 1,000 mg Sfgl] 1 tab PO BID [History] Propranolol HCl [Inderal LA] 120 mg PO DAILY 11/29/15 [History] Tamsulosin HCl [Flomax] 0.4 mg PO DAILY 11/29/15 [History] Tiotropium [Spiriva HandiHaler] 1 cap INH DAILY 11/29/15 [History] Triamcinolone Acetonide [Kenalog 0.1% Crm] 1 applic TOP TID 11/29/15 [History] Finasteride [Proscar] 5 mg PO DAILY 12/14/16 [History] Multivitamin W-Minerals/Lutein [Vision Plus Lutein Vitamin] 1 each PO DAILY [History] Ubidecarenone [Co Q-10] 100 mg PO BID 08/29/16 [History] Albuterol Sulfate [Ventolin Hfa] 2 puff INH Q6H PRN 12/16/16 [History] Carbidopa/Levodopa [Sinemet CR 50-200] 1 tab PO BEDTIME 04/17/17 [History] Ferrous Sulfate 1 tab PO BID 04/17/17 [History] Furosemide 1 tab PO DAILY 04/17/17 [History] Mirabegron [Myrbetriq] 1 tab PO DAILY 04/17/17 [History] Polyethylene Glycol 3350 [MiraLAX] 1 dose PO DAILY PRN 04/17/17 [History] Past Medical History HEENT History: Reports: Cataract Respiratory History: Reports: COPD, SOB Gastrointestinal History: Reports: Chronic Constipation, Cirrhosis Genitourinary History: Reports: BPH Musculoskeletal History: Reports: Back Pain, Chronic, Fracture Other Musculoskeletal History: left leg in college Neurological History: Reports: Parkinson's Hematologic History: Reports: Anemia Dermatologic History: Reports: Other (See Below) Other Dermatologic History: skin rash - Infectious Disease History Infectious Disease History: Reports: Chicken Pox, Measles, Mumps, Rheumatic Fever - Past Surgical History HEENT Surgical History: Reports: Cataract Surgery GI Surgical History: Reports: Colonoscopy, EGD, Hernia, Inguinal Social & Family History - Tobacco Use Smoking Status *Q: Never Smoker Years of Tobacco use: 48 Used Tobacco, but Quit: Yes Month Tobacco Last Used: 2006 Second Hand Smoke Exposure: No - Caffeine Use Caffeine Use: Reports: Coffee - Alcohol Use Days Per Week of Alcohol Use: 0 - Recreational Drug Use Recreational Drug Use: No ED ROS GENERAL - Review of Systems Review Of Systems: See Below Constitutional: Reports: Weakness. Denies: Fever, Chills HEENT: Reports: No Symptoms Respiratory: Reports: Shortness of Breath Cardiovascular: Reports: No Symptoms GI/Abdominal: Reports: No Symptoms, Other ( ) : Reports: No Symptoms Musculoskeletal: Reports: No Symptoms Skin: Reports: No Symptoms Neurological: Reports: No Symptoms ED EXAM, GENERAL - Physical Exam Exam: See Below Free Text/Narrative:: General: Elderly male, not in any distress, alert and oriented x3 HEENT: head is atraumatic normocephalic, eyes pupils equal round reactive to light, sclera clear no conjunctivitis appreciated. Ears tympanic membranes clear and brooks landmarks and light reflex are present bilaterally canals are clear. Nose no septal deviation, nares are clear, no blood present. Mouth mucosa is moist and pink no erythema or exudate noted in soft palate, tongue is midline uvula is midline, dentures in place. Neck: Supple no thyromegaly no tracheal deviation. Nodes: Cervical nodes subclavicular nodes nontender no palpable lymphadenopathy noted. Lungs: clear to auscultation bilaterally with symmetrical respirations, no adventitious noise appreciated. CV: Regular rate and rhythm S1 and S2 appreciated no murmurs rubs or gallops noted. Thorax CVA tenderness right side Abdomen: Soft, nontender, no palpable masses or organomegaly appreciated, no distention no guarding bowel sounds are present,. Neuro: Cranial nerves II through XII grossly intact Skin: Warm and dry, intact Extremities: No lower extremity edema appreciated Course - Vital Signs Last Recorded V/S: Last Vital Signs Temp 98.2 F 04/17/17 15:33 Pulse 70 04/17/17 17:17 Resp 16 04/17/17 15:33 BP 138/70 04/17/17 17:17 Pulse Ox 91 L 04/17/17 17:17 - Orders/Labs/Meds Orders: Active Orders 24 hr Category Date Time Status Peripheral IV Care [RC] . DIRECTED Care 04/17/17 17:50 Ordered Chest 1V Frontal [CR] Urgent Exams 04/17/17 16:33 Taken CULTURE BLOOD [BC] Urgent Lab 04/17/17 17:37 Received CULTURE BLOOD [BC] Urgent Lab 04/17/17 17:37 Received CULTURE URINE [RM] Stat Lab 04/17/17 17:36 Uncollected Levofloxacin/Dextrose 5%-Water [Levaquin in D5W 750 MG/ Med 04/17/17 17:58 Ordered 150 ML] 750 mg Premix Bag 1 bag IV ONETIME Sodium Chloride 0.9% [Saline Flush] Med 04/17/17 17:50 Ordered 10 ml FLUSH ASDIRECTED PRN Blood Culture x2 Reflex Set [OM.PC] Urgent Oth 04/17/17 17:36 Ordered Peripheral IV Insertion Adult [OM.PC] Urgent Oth 04/17/17 17:50 Ordered Medication Orders Levofloxacin/Dextrose 750 mg/ (Premix) 150 mls @ 100 mls/hr IV ONETIME ONE Stop: 04/17/17 19:27 Sodium Chloride (Saline Flush) 10 ml FLUSH ASDIRECTED PRN PRN Reason: Keep Vein Open Labs: Laboratory Tests 04/17/17 04/17/17 04/17/17 Range/Units 16:33 16:33 16:33 WBC 5.8 (4.5-11.0) K/uL RBC 3.03 L (4.30-5.90) M/uL Hgb 9.6 L (12.0-15.0) g/dL Hct 29.1 L (40.0-54.0) % MCV 96 (80-98) fL MCH 32 H (27-31) pg MCHC 33 (32-36) % Plt Count 128 L (150-400) K/uL Neut % (Auto) 66 (36-66) % Lymph % (Auto) 21 L (24-44) % [place] % (Auto) 9 H (2-6) % Eos % (Auto) 3 (2-4) % Baso % (Auto) 0 (0-1) % Sodium 140 (140-148) mmol/L Potassium 4.7 (3.6-5.2) mmol/L Chloride 104 (100-108) mmol/L Carbon Dioxide 32 (21-32) mmol/L Anion Gap 4.0 L (5.0-14.0) mmol/L BUN 29 H (7-18) mg/dL Creatinine 1.6 H (0.8-1.3) mg/dL Est Cr Clr Drug Dosing 38.65 mL/min Estimated GFR (MDRD) 42 L (>60) Glucose 128 H (74-106) mg/dL Lactic Acid (0.4-2.0) mmol/L Calcium 8.6 (8.5-10.1) mg/dL Total Bilirubin 0.3 (0.2-1.0) mg/dL AST 26 (15-37) U/L ALT 4 L (12-78) U/L Alkaline Phosphatase 84 (46-116) U/L Creatine Kinase 56 (39-308) U/L Troponin I 0.035 (0.000-0.056) ng/mL Ozj-Q-Xfjwcndzill Pept (5-450) pg/mL Total Protein 6.7 (6.4-8.2) g/dL Albumin 1.8 L (3.4-5.0) g/dL Globulin 4.9 H (2.3-3.5) g/dL Albumin/Globulin Ratio 0.4 L (1.2-2.2) Lipase 222 (73-393) U/L TSH, Ultra Sensitive 2.006 (0.358-3.740) uIU/mL Urine Color Urine Appearance Urine pH (4.5-8.0) Ur Specific [place] (1.008-1.030) Urine Protein (NEGATIVE) mg/dL Urine Glucose (UA) (NEGATIVE) mg/dL Urine Ketones (NEGATIVE) mg/dL Urine Occult Blood (NEGATIVE) Urine Nitrite (NEGAITVE) Urine Bilirubin (NEGATIVE) Urine Urobilinogen (NORMAL) mg/dL Ur Leukocyte Esterase (NEGATIVE) Urine RBC (0-5) Urine WBC (0-5) Ur Epithelial Cells Amorphous Sediment Urine Bacteria Urine Mucus 04/17/17 04/17/17 04/17/17 Range/Units 16:33 16:34 16:40 WBC (4.5-11.0) K/uL RBC (4.30-5.90) M/uL Hgb (12.0-15.0) g/dL Hct (40.0-54.0) % MCV (80-98) fL MCH (27-31) pg MCHC (32-36) % Plt Count (150-400) K/uL Neut % (Auto) (36-66) % Lymph % (Auto) (24-44) % [place] % (Auto) (2-6) % Eos % (Auto) (2-4) % Baso % (Auto) (0-1) % Sodium (140-148) mmol/L Potassium (3.6-5.2) mmol/L Chloride (100-108) mmol/L Carbon Dioxide (21-32) mmol/L Anion Gap (5.0-14.0) mmol/L BUN (7-18) mg/dL Creatinine (0.8-1.3) mg/dL Est Cr Clr Drug Dosing mL/min Estimated GFR (MDRD) (>60) Glucose (74-106) mg/dL Lactic Acid 1.8 (0.4-2.0) mmol/L Calcium (8.5-10.1) mg/dL Total Bilirubin (0.2-1.0) mg/dL AST (15-37) U/L ALT (12-78) U/L Alkaline Phosphatase (46-116) U/L Creatine Kinase (39-308) U/L Troponin I (0.000-0.056) ng/mL [id number]-D-Gtcrswnpofj Pept 3678 H (5-450) pg/mL Total Protein (6.4-8.2) g/dL Albumin (3.4-5.0) g/dL Globulin (2.3-3.5) g/dL Albumin/Globulin Ratio (1.2-2.2) Lipase (73-393) U/L TSH, Ultra Sensitive (0.358-3.740) uIU/mL Urine Color Yellow Urine Appearance Cloudy Urine pH 5.0 (4.5-8.0) Ur Specific [place] 1.025 (1.008-1.030) Urine Protein Negative (NEGATIVE) mg/dL Urine Glucose (UA) 50 H (NEGATIVE) mg/dL Urine Ketones 15 H (NEGATIVE) mg/dL Urine Occult Blood Large (NEGATIVE) Urine Nitrite Negative (NEGAITVE) Urine Bilirubin Negative (NEGATIVE) Urine Urobilinogen 1 (NORMAL) mg/dL Ur Leukocyte Esterase Small (NEGATIVE) Urine RBC Semi-packed H (0-5) Urine WBC 5-10 H (0-5) Ur Epithelial Cells Moderate Amorphous Sediment Few Urine Bacteria Few Urine Mucus Few Meds: Medications Generic Name Dose Route Start Last Admin Trade Name Freq PRN Reason Stop Dose Admin Levofloxacin/Dextrose 750 mg/ 150 mls @ 100 mls/hr 04/17/17 17:58 Premix IV 04/17/17 19:27 ONETIME ONE Sodium Chloride 10 ml 04/17/17 17:50 Saline Flush FLUSH ASDIRECTED PRN Keep Vein Open Discontinued Medications Generic Name Dose Route Start Last Admin Trade Name Freq PRN Reason Stop Dose Admin Levofloxacin/Dextrose 500 mg/ 100 mls @ 100 mls/hr 04/17/17 17:50 Premix IV 04/17/17 18:49 ONETIME ONE Departure - Departure Time of Disposition: 19:30 Disposition: Home, Self-Care 01 Condition: Fair Clinical Impression: Pyelonephritis - Discharge Information Forms: ED Department Discharge Additional Instructions: Take full course of antibiotics, Please followup with your primary care provider in 3-5 days if not better, please call return to the emergency department with worsening of symptoms. - My Orders Last 24 Hours: My Active Orders 04/17/17 16:33 Chest 1V Frontal [CR] Urgent 04/17/17 17:36 CULTURE URINE [RM] Stat Blood Culture x2 Reflex Set [OM.PC] Urgent 04/17/17 17:37 CULTURE BLOOD [BC] Urgent CULTURE BLOOD [BC] Urgent 04/17/17 17:50 Peripheral IV Care [RC] . DIRECTED Sodium Chloride 0.9% [Saline Flush] 10 ml FLUSH ASDIRECTED PRN Peripheral IV Insertion Adult [OM.PC] Urgent 04/17/17 17:58 Levofloxacin/Dextrose 5%-Water [Levaquin in D5W 750 MG/150 ML] 750 mg Premix Bag 1 bag IV ONETIME - Assessment/Plan Last 24 Hours: My Active Orders 04/17/17 16:33 Chest 1V Frontal [CR] Urgent 04/17/17 17:36 CULTURE URINE [RM] Stat Blood Culture x2 Reflex Set [OM.PC] Urgent 04/17/17 17:37 CULTURE BLOOD [BC] Urgent CULTURE BLOOD [BC] Urgent 04/17/17 17:50 Peripheral IV Care [RC] . DIRECTED Sodium Chloride 0.9% [Saline Flush] 10 ml FLUSH ASDIRECTED PRN Peripheral IV Insertion Adult [OM.PC] Urgent 04/17/17 17:58 Levofloxacin/Dextrose 5%-Water [Levaquin in D5W 750 MG/150 ML] 750 mg Premix Bag 1 bag IV ONETIME Plan: Assessment Acuity = acute Site and laterality = probable pyelonephritis with nephrolithiasis involvement comp. Patient with known history of Parkinson's, chronic obstructive pulmonary disease and congestive heart failure Etiology = suspicious for bacterial cause Manifestations = back pain, weakness Location of injury = Home Lab values = hemoglobin low at 9.6 consistent with normochromic anemia creatinine elevated 1.6 consistent chronic renal failure stage G IIIB lactic acid normal at 1.8 BNP is elevated at 3678 consistent with fluid overload probably near his baseline urinalysis reveals WBCs 5-10 consistent with pyuria and RBCs are packed consistent with hematuria blood cultures and urine cultures are pending, chest x-ray I did review films myself I cannot appreciate any acute process, the official read from radiology is pending Plan I did review lab work chest x-ray results with him because I'm concerned about pyelonephritis development placement levofloxacin 750 mg she did get one IV dose while in the ED discharged home with the remainder medication for total of 10 day course treatment follow-up with primary care in 3-5 days for reevaluation Patient was in agreement with the plan all questions were answered, they were instructed to return to the emergency department or call for worsening symptoms. This note was dictated using [employer] voice recognition software please call with any questions.
[2017-04-17 17:17] VITALS: BP 138/70
[2017-04-17] MEDS ORDERED: Sodium Chloride 0.9% 10 ML Syringe FLUSH PRN (17:50)
[2017-04-17] MEDS ORDERED: Levofloxacin/Dextrose 5%-Water 500 MG in Premix Bag 1 BAG IV ONE (17:50)
[2017-04-17] MEDS ORDERED: Levofloxacin/Dextrose 5%-Water 750 MG in Premix Bag 1 BAG IV ONE (17:58)
--- NOTE | 2017-04-18 11:20 | CR ---
Mild cardiomegaly. The remains a radiodense opacification left upper lobe. Refer to recent CT would recommend follow-up for clearing. This could indicate infection but would exclude a mass with follow -up. Interstitial changes within the mid lung zones have increased with slight haziness left midlung zone. Findings may indicate CHF. Infection not excluded. Trace pleural effusions. There is a power pack overlying the left mid chest which is in a different position compared to prior. Correlate for migration. Correlate for outside the patient.
== END 2017-04-17 20:10 | disposition home or self-care (01) ==
LOC: JP.ED 14:56
DX: N12 Tubulo-interstitial nephritis, not specified as acute or chronic (principal); J44.9 Chronic obstructive pulmonary disease, unspecified; D64.9 Anemia, unspecified; G20 Parkinson's disease; Z98.49 Cataract extraction status, unspecified eye; Z79.899 Other long term (current) drug therapy; Z79.82 Long term (current) use of aspirin; Z88.0 Allergy status to penicillin; R06.02 Shortness of breath
CPT/HCPCS: 36415; 71010; 80053; 81001; 82550; 83605; 83690; 83880; 84443; 84484; 85025; 87040; 87086; 96365; 99284; J1956; J7050

== ENCOUNTER 2017-08-09 10:14 | Observation (INO) | payer MEDICARE, BC ==
--- NOTE | 2017-08-09 10:37 | CT ---
Head wo Cont HISTORY: Stroke symptoms. Dose: Total DLP 861. COMPARISON: Prior CT scan 06/05/2017. FINDINGS: New large acute hemorrhage in the left basal ganglia and left thalamus measuring 5 cm x 4 c m with adjacent vasogenic edema. Blood has extended into the ventricles with moderate hydrocephalus. No subdural hematoma seen. Impression: 1. Very large intraparenchymal hemorrhage centered in the left basal ganglia and left thalamus with e xtension into the ventricles with moderate new hydrocephalus. These findings were called to the ER physician at 10:32 AM hours
--- NOTE | 2017-08-09 11:06 | EDM.PDOC ---
ED HPI GENERAL MEDICAL PROBLEM - General Chief Complaint: Neuro Symptoms/Deficits Stated Complaint: MED[facility] Time Seen by Provider: 08/09/17 10:15 Source of Information: Reports: EMS, Family History Limitations: Reports: Altered Mental Status, Other (Patient is obtunded and unresponsive) - History of Present Illness INITIAL COMMENTS - FREE TEXT/NARRATIVE: 81-year-old male with many comorbidities including cirrhosis, COPD, Parkinson's and chronic renal failure was last seen "normal" at 7:30 AM. His went into check on him around 9:30 and found him obtunded, unresponsive with snoring respirations. EMS was called, brief exam revealed a dilated left pupil, unresponsive pupils, and a normal blood sugar. He was transferred urgently to the emergency room with a presumptive diagnosis of a CVA. Onset: Unknown/Unsure Severity: Severe - Related Data Allergies Allergy/AdvReac Type Severity Reaction Status Date / Time Penicillins Allergy Cannot Verified 08/09/17 10:35 Remember diazepam [From Valium] AdvReac Lethargy Verified 08/09/17 13:12 Home Meds: Home Meds Aspirin [Halfprin] 81 mg PO DAILY 11/29/15 [History] Carbidopa/Levodopa [Sinemet 25-100 mg Tablet] 1 tab PO QID 11/29/15 [History] Cholecalciferol (Vitamin D3) [Vitamin D3] 2,000 unit PO DAILY 11/29/15 [History] Donepezil HCl [Aricept] 10 mg PO DAILY 11/29/15 [History] Glucosamine [Glucosamine Sulfate] 500 mg PO DAILY 11/29/15 [History] [place]-3S/DHA/Epa/Fish Oil [[place]-3 Fish Oil 1,000 mg Sfgl] 1 tab PO BID [History] Tamsulosin HCl [Flomax] 0.4 mg PO DAILY 11/29/15 [History] Finasteride [Proscar] 5 mg PO DAILY 08/29/16 [History] Ubidecarenone [Co Q-10] 100 mg PO BID 08/29/16 [History] Albuterol Sulfate [Ventolin Hfa] 2 puff INH Q6H PRN 12/16/16 [History] Carbidopa/Levodopa [Sinemet CR 50-200] 1 tab PO BEDTIME 04/17/17 [History] Ferrous Sulfate 1 tab PO DAILY 04/17/17 [History] Furosemide 0.5 tab PO DAILY 04/17/17 [History] Mirabegron [Myrbetriq] 1 tab PO DAILY 04/17/17 [History] Polyethylene Glycol 3350 [MiraLAX] 1 dose PO DAILY PRN 04/17/17 [History] Budesonide [Pulmicort] 0.5 mg IH BID 08/09/17 [History] Carvedilol [Coreg] 6.25 mg PO BID 08/09/17 [History] Ondansetron [Zofran] 4 mg PO Q8H 08/09/17 [History] Spironolactone [Aldactone] 12.5 mg PO DAILY 08/09/17 [History] Umeclidinium Brm/Vilanterol Tr [Anoro Ellipta 62.5-25 Mcg INH] 1 puff PO DAILY 08/09/17 [History] Past Medical History HEENT History: Reports: Cataract Respiratory History: Reports: COPD, SOB Gastrointestinal History: Reports: Chronic Constipation, Cirrhosis Genitourinary History: Reports: BPH Musculoskeletal History: Reports: Back Pain, Chronic, Fracture Other Musculoskeletal History: left leg in college. R hip pain Neurological History: Reports: Parkinson's Hematologic History: Reports: Anemia Dermatologic History: Reports: Other (See Below) Other Dermatologic History: skin rash - Infectious Disease History Infectious Disease History: Reports: Chicken Pox, Measles, Mumps, Rheumatic Fever - Past Surgical History HEENT Surgical History: Reports: Cataract Surgery GI Surgical History: Reports: Colonoscopy, EGD, Hernia, Inguinal Social & Family History - Tobacco Use Smoking Status *Q: Unknown Ever Smoked Years of Tobacco use: 48 Used Tobacco, but Quit: Yes Month Tobacco Last Used: 2006 Second Hand Smoke Exposure: No - Caffeine Use Caffeine Use: Reports: Coffee - Alcohol Use Days Per Week of Alcohol Use: 0 - Recreational Drug Use Recreational Drug Use: No ED ROS GENERAL - Review of Systems Review Of Systems: Unable To Obtain ED EXAM, NEURO - Physical Exam Exam: See Below Exam Limited By: Altered Mental Status General Appearance: Obtunded Eye Exam: Bilateral Eye: Other (Left pupil fixed and dilated, right pupil and responsive but normal size at 3 mm) Head Exam: Atraumatic Respiratory/Chest: No Respiratory Distress Cardiovascular: Regular Rate, Rhythm GI/Abdominal: Soft Neurological: Other (Patient is obtunded and has no response to pain or stimulus ) Skin Exam: Warm, Dry Course - Vital Signs Last Recorded V/S: Last Vital Signs Temp 96.7 F 08/09/17 13:08 Pulse 81 08/09/17 13:08 Resp 26 H 08/09/17 13:08 BP 205/81 H 08/09/17 13:08 Pulse Ox 96 08/09/17 13:08 - Orders/Labs/Meds Orders: Medication Orders Atropine Sulfate (Atropine 1%) 0 ml SL Q4H PRN PRN Reason: secretions Lorazepam (Ativan) 0.5 - 1 mg IVPUSH Q1H PRN PRN Reason: Agitation Morphine Sulfate (Morphine) 2 - 4 mg IVPUSH Q1H PRN PRN Reason: pain/air hunger Last Admin: 08/09/17 13:43 Dose: 4 mg Meds: Medications Generic Name Dose Route Start Last Admin Trade Name Freq PRN Reason Stop Dose Admin Atropine Sulfate 0 ml 08/09/17 13:11 Atropine 1% SL Q4H PRN secretions Lorazepam 0.5 - 1 mg 08/09/17 13:11 Ativan IVPUSH Q1H PRN Agitation Morphine Sulfate 2 - 4 mg 08/09/17 13:11 08/09/17 13:43 Morphine IVPUSH 4 mg Q1H PRN Administration pain/air hunger - Re-Assessments/Exams Free Text/Narrative Re-Assessment/Exam: 08/09/17 11:[address] was obtained which showed a very large parenchymal hemorrhage extending in the thalamus and basal ganglia with hemorrhages into the ventricles and hydrocephalus formation. The results were discussed with radiology, neurology, neurosurgery in the family and a decision was made that this is untreatable especially with the patient's comorbidities. It was elected to admit him for comfort cares and anticipate the patient not surviving his injuries. Departure - Departure Time of Disposition: 12:36 Disposition: Admitted As Inpatient 68 Condition: Critical Clinical Impression: Cerebral parenchymal hemorrhage Qualifiers: Intracerebral hemorrhage etiology: nontraumatic Cerebral hemorrhage location: brainstem Laterality: unspecified laterality Qualified Code(s): I61.3 - Nontraumatic intracerebral hemorrhage in brain stem - Discharge Information
--- NOTE | 2017-08-09 12:35 | PCM.HP ---
H&P History of Present Illness - General Date of Service: 08/09/17 Admit Problem/Dx: Admission Diagnosis/Problem Admission Diagnosis/Problem Hemorrhagic cerebrovascular accident (CVA) Source of Information: Family, Provider. No: Patient History Limitations: Reports: Altered Mental Status (obtunded) - History of Present Illness Initial Comments - Free Text/Narative: Jnoathan presented to the emergency room by ambulance after he was found by his unresponsive. He is obtunded and unable to provide any history. History is gathered from his . She reports that he has been doing well recently with nothing out of the ordinary. He had a normal Thanksgiving yesterday and seemed normal this morning around 7 when he had his pills. His last saw him around 7:30 this morning and he seemed okay at that point other than feeling tired. She went back to check on him a little after 9 AM and he was snoring loudly so she thought he needed some sleep but when she checked on him again a short time later she was unable to wake him up and she summoned 911 assistance. He was brought to the emergency room and a head CT revealed a very large left- sided intraparenchymal hemorrhage. After further discussion comfort cares were elected given the size of the infarct and poor [id number] prior to onset of the stroke. - Related Data Allergies/Adverse Reactions: Allergies Allergy/AdvReac Type Severity Reaction Status Date / Time Penicillins Allergy Cannot Verified 08/09/17 10:35 Remember diazepam [From Valium] AdvReac Lethargy Verified 08/09/17 13:12 Home Medications: Home Meds Aspirin [Halfprin] 81 mg PO DAILY 11/29/15 [History] Carbidopa/Levodopa [Sinemet 25-100 mg Tablet] 1 tab PO QID 11/29/15 [History] Cholecalciferol (Vitamin D3) [Vitamin D3] 2,000 unit PO DAILY 11/29/15 [History] Donepezil HCl [Aricept] 10 mg PO DAILY 11/29/15 [History] Glucosamine [Glucosamine Sulfate] 500 mg PO DAILY 11/29/15 [History] [place]-3S/DHA/Epa/Fish Oil [[place]-3 Fish Oil 1,000 mg Sfgl] 1 tab PO BID [History] Tamsulosin HCl [Flomax] 0.4 mg PO DAILY 11/29/15 [History] Finasteride [Proscar] 5 mg PO DAILY 08/29/16 [History] Ubidecarenone [Co Q-10] 100 mg PO BID 08/29/16 [History] Albuterol Sulfate [Ventolin Hfa] 2 puff INH Q6H PRN 12/16/16 [History] Carbidopa/Levodopa [Sinemet CR 50-200] 1 tab PO BEDTIME 04/17/17 [History] Ferrous Sulfate 1 tab PO DAILY 04/17/17 [History] Furosemide 0.5 tab PO DAILY 04/17/17 [History] Mirabegron [Myrbetriq] 1 tab PO DAILY 04/17/17 [History] Polyethylene Glycol 3350 [MiraLAX] 1 dose PO DAILY PRN 04/17/17 [History] Budesonide [Pulmicort] 0.5 mg IH BID 08/09/17 [History] Carvedilol [Coreg] 6.25 mg PO BID 08/09/17 [History] Ondansetron [Zofran] 4 mg PO Q8H 08/09/17 [History] Spironolactone [Aldactone] 12.5 mg PO DAILY 08/09/17 [History] Umeclidinium Brm/Vilanterol Tr [Anoro Ellipta 62.5-25 Mcg INH] 1 puff PO DAILY 08/09/17 [History] Past Medical History HEENT History: Reports: Cataract Respiratory History: Reports: COPD, SOB Gastrointestinal History: Reports: Chronic Constipation, Cirrhosis Genitourinary History: Reports: BPH Musculoskeletal History: Reports: Back Pain, Chronic, Fracture Other Musculoskeletal History: left leg in college. R hip pain Neurological History: Reports: Parkinson's Hematologic History: Reports: Anemia Dermatologic History: Reports: Other (See Below) Other Dermatologic History: skin rash - Infectious Disease History Infectious Disease History: Reports: Chicken Pox, Measles, Mumps, Rheumatic Fever - Past Surgical History HEENT Surgical History: Reports: Cataract Surgery GI Surgical History: Reports: Colonoscopy, EGD, Hernia, Inguinal Social & Family History - Family History Neurological: Denies: CVA - Tobacco Use Smoking Status *Q: Unknown Ever Smoked Years of Tobacco use: 48 Used Tobacco, but Quit: Yes Month Tobacco Last Used: 2006 Second Hand Smoke Exposure: No - Caffeine Use Caffeine Use: Reports: Coffee - Alcohol Use Days Per Week of Alcohol Use: 0 - Recreational Drug Use Recreational Drug Use: No H&P Review of Systems - Review of Systems: Review Of Systems: Unable To Obtain (obtunded and unresponsive) Exam - Exam Exam: See Below - Vital Signs Vital Signs: Last Vital Signs Temp 36.6 C 08/09/17 10:15 Pulse 78 08/09/17 11:40 Resp 26 H 08/09/17 11:40 BP 212/91 H 08/09/17 11:40 Pulse Ox 99 08/09/17 11:40 Weight: 65.771 kg - Exam Quality Assessment: No: Supplemental Oxygen General: Obtunded. No: Alert, Cooperative, Mild Distress HEENT: No: Mucosa Moist & [place] (dry), Scleral Icterus Lungs: Normal Respiratory Effort GI/Abdominal Exam: No Distention Extremities: No Pedal Edema Neuro Extensive - Mental Status: No: Alert, Oriented x3 Psychiatric: No: Alert - Patient Data Imaging Impressions Last 24 hrs: Head CT - images personally reviewed - large left sided intraparenchymal hemorrhage with mass effect *Q Meaningful Use (ADM) - VTE *Q VTE Criteria *Q: - Stroke *Q Stroke Criteria *Q: - AMI *Q AMI Criteria *Q: - Problem List (1) Hemorrhagic cerebrovascular accident (CVA) SNOMED Code(s): 979421183 ICD Code: I61.9 - NONTRAUMATIC INTRACEREBRAL HEMORRHAGE, UNSPECIFIED Status : Acute Current Visit: Yes Problem List Initiated/Reviewed/Updated: Yes Orders Last 24hrs: Active Orders 24 hr Category Date Time Status Patient Status Manage Transfer [TRANSFER] Routine ADT 08/09/17 12:28 Ordered Resuscitation Status Routine Resus Stat 08/09/17 12:29 Ordered Assessment/Plan Comment:: ASSESSMENT AND PLAN - Large left-sided hemorrhagic cerebrovascular accident - large intraparenchymal hemorrhage with midline shift. Family has elected to move towards comfort cares. Patient appears comfortable at this time. He is hypertensive but heart rate and oxygenation are stable at this time. He is obtunded. I would anticipate that he will pass in a limited number of hours. -Morphine and lorazepam as needed -Atropine as needed for secretions -Comfort cares only Maintenance issues - - DVT prophylaxis - not indicated, comfort cares - GI prophylaxis - not indicated - Nutrition - nothing by mouth - Murphy catheter - not indicated CODE STATUS - DNR/DNI, comfort care only Admission justification - patient will be referred observation as I anticipate that he will pass in a limited number of hours Disposition - home Primary care physician - Dr. Nile George M.D.
[2017-08-09] MEDS ORDERED: Atropine Sulfate Ophth 2 ML Drops SL PRN (13:11)
[2017-08-09] MEDS ORDERED: LORazepam 2 MG/ML MDV IVPUSH PRN (13:11)
[2017-08-09] MEDS ORDERED: Morphine 2 MG/ML Syringe IVPUSH PRN (13:11)
[2017-08-09] MEDS ORDERED: LORazepam ORAL Concentrate 1MG/0.5ML U/D PO PRN (15:06)
[2017-08-09] MEDS: Morphine 10 MG/0.5 ML Oral Syringe PO PRN ×2 (16:00→21:45)
[2017-08-10] MEDS: Morphine 10 MG/0.5 ML Oral Syringe PO PRN ×5 (07:41→17:55)
[2017-08-10 08:13] VITALS: BP 154/58
--- NOTE | 2017-08-10 13:31 | PCM.PN ---
- General Info Date of Service: 08/10/17 - Review of Systems Systems Review Comment:: no acute change since yesterday. Has been receiving morphine occasionally for apparent discomfort. Blood pressures have come down from the 200 range yesterday. Mildly hypoxic this morning. appears comfortable. - Patient Data Vitals - Most Recent: Last Vital Signs Temp 37.4 C 08/10/17 08:10 Pulse 78 08/10/17 08:10 Resp 26 H 08/10/17 08:10 BP 154/58 H 08/10/17 08:10 Pulse Ox 83 L 08/10/17 08:10 Weight - Most Recent: 65.771 kg Med Orders - Current: Current Medications Atropine Sulfate (Atropine 1%) 0 ml SL Q4H PRN PRN Reason: secretions Lorazepam (Ativan Oral Concentrate 1mg/0.5 Ml U/D) 0.5 - 1 mg PO Q1H PRN PRN Reason: Agitation Morphine Sulfate (Morphine 10 Mg/0.5 Ml Oral Syringe) 5 - 10 mg PO Q1H PRN PRN Reason: Pain Last Admin: 08/10/17 11:30 Dose: 10 mg Discontinued Medications Lorazepam (Ativan) 0.5 - 1 mg IVPUSH Q1H PRN PRN Reason: Agitation Morphine Sulfate (Morphine) 2 - 4 mg IVPUSH Q1H PRN PRN Reason: pain/air hunger Last Admin: 08/09/17 13:43 Dose: 4 mg - Exam Quality Assessment: No: Supplemental Oxygen General: Obtunded Lungs: No: Normal Respiratory Effort (mild tachypnea) GI/Abdominal Exam: No Distention Psy/Mental Status: No: Anxious, Agitated - Problem List & Annotations (1) Hemorrhagic cerebrovascular accident (CVA) SNOMED Code(s): 686697876 Code(s): I61.9 - NONTRAUMATIC INTRACEREBRAL HEMORRHAGE, UNSPECIFIED Status : Acute Current Visit: Yes - Problem List Review Problem List Initiated/Reviewed/Updated: Yes - My Orders Last 24 Hours: My Active Orders 08/09/17 13:11 Patient Status [ADT] Routine Bedrest Bathroom Privileges [RC] ASDIRECTED Vital Signs [RC] QSHIFT Atropine Sulfate [Atropine 1%] 0 ml SL Q4H PRN 08/09/17 15:05 Morphine [Morphine 10 MG/0.5 ML Oral Syringe] 5 - 10 mg PO Q1H PRN 08/09/17 15:06 LORazepam [Ativan ORAL Concentrate 1MG/0.5 ML U/D] 0.5 - 1 mg PO Q1H PRN - Plan Plan:: ASSESSMENT AND PLAN - Large left-sided hemorrhagic cerebrovascular accident - large intraparenchymal hemorrhage with midline shift. Family has elected to move towards comfort cares. Patient appears comfortable at this time. I would anticipate that he will pass in a limited number of hours. -Morphine and lorazepam as needed -Atropine as needed for secretions -Comfort cares only Maintenance issues - - DVT prophylaxis - not indicated, comfort cares - GI prophylaxis - not indicated - Nutrition - nothing by mouth - Murphy catheter - not indicated CODE STATUS - DNR/DNI, comfort care only Admission justification - patient will be referred observation as I anticipate that he will pass in a limited number of hours Disposition - home Primary care physician - Dr. Nile George M.D.
--- NOTE | 2017-08-11 11:38 | PCM.DCSUM1 ---
Discharge Summary - Hospital Course Brief History: 81-year-old male with history of Parkinson's disease who presented after being found unresponsive. Workup in the emergency room revealed a large left intraparenchymal hemorrhage and he was admitted for comfort cares. - Discharge Data Discharge Date: 08/11/17 Discharge Disposition: 20 Condition: Poor - Discharge Diagnosis/Problem(s) (1) Hemorrhagic cerebrovascular accident (CVA) SNOMED Code(s): 735069816 ICD Code: I61.9 - NONTRAUMATIC INTRACEREBRAL HEMORRHAGE, UNSPECIFIED Status : Acute - Patient Summary/Data Hospital Course: Jonathan presented to the emergency room after his found him unresponsive at home. Workup in the emergency room revealed a large left intraparenchymal hemorrhage. This was thought to be a terminal event. Consultation with the family led to the decision for him to be admitted for comfort cares. He was admitted to the hospital and provided morphine and lorazepam as needed for pain and anxiety/agitation. He was comfortable during the course of the hospital stay and passed peacefully with his family by his side the evening of August 10. No attempts at resuscitation were made per previously expressed wishes for comfort cares and DO NOT RESUSCITATE. - Discharge Plan Home Medications: Home Meds Aspirin [Halfprin] 81 mg PO DAILY 11/29/15 [History] Carbidopa/Levodopa [Sinemet 25-100 mg Tablet] 1 tab PO QID 11/29/15 [History] Cholecalciferol (Vitamin D3) [Vitamin D3] 2,000 unit PO DAILY 11/29/15 [History] Donepezil HCl [Aricept] 10 mg PO DAILY 11/29/15 [History] Glucosamine [Glucosamine Sulfate] 500 mg PO DAILY 11/29/15 [History] [place]-3S/DHA/Epa/Fish Oil [[place]-3 Fish Oil 1,000 mg Sfgl] 1 tab PO BID [History] Tamsulosin HCl [Flomax] 0.4 mg PO DAILY 11/29/15 [History] Finasteride [Proscar] 5 mg PO DAILY 08/29/16 [History] Ubidecarenone [Co Q-10] 100 mg PO BID 08/29/16 [History] Albuterol Sulfate [Ventolin Hfa] 2 puff INH Q6H PRN 12/16/16 [History] Carbidopa/Levodopa [Sinemet CR 50-200] 1 tab PO BEDTIME 04/17/17 [History] Ferrous Sulfate 1 tab PO DAILY 04/17/17 [History] Furosemide 0.5 tab PO DAILY 04/17/17 [History] Mirabegron [Myrbetriq] 1 tab PO DAILY 04/17/17 [History] Polyethylene Glycol 3350 [MiraLAX] 1 dose PO DAILY PRN 04/17/17 [History] Budesonide [Pulmicort] 0.5 mg IH BID 08/09/17 [History] Carvedilol [Coreg] 6.25 mg PO BID 08/09/17 [History] Ondansetron [Zofran] 4 mg PO Q8H 08/09/17 [History] Spironolactone [Aldactone] 12.5 mg PO DAILY 08/09/17 [History] Umeclidinium Brm/Vilanterol Tr [Anoro Ellipta 62.5-25 Mcg INH] 1 puff PO DAILY 08/09/17 [History] Forms: ED Department Discharge Referrals: PCP,None [Primary Care Provider] - - Discharge Summary/Plan Comment DC Time >30 min.: No - Patient Data Vitals - Most Recent: Last Vital Signs Temp 37.4 C 08/10/17 08:10 Pulse 78 08/10/17 08:10 Resp 26 H 08/10/17 08:10 BP 154/58 H 08/10/17 08:10 Pulse Ox 83 L 08/10/17 08:10 Weight - Most Recent: 65.771 kg Med Orders - Current: Current Medications Discontinued Medications Atropine Sulfate (Atropine 1%) 0 ml SL Q4H PRN PRN Reason: secretions Lorazepam (Ativan) 0.5 - 1 mg IVPUSH Q1H PRN PRN Reason: Agitation Lorazepam (Ativan Oral Concentrate 1mg/0.5 Ml U/D) 0.5 - 1 mg PO Q1H PRN PRN Reason: Agitation Morphine Sulfate (Morphine) 2 - 4 mg IVPUSH Q1H PRN PRN Reason: pain/air hunger Last Admin: 08/09/17 13:43 Dose: 4 mg Morphine Sulfate (Morphine 10 Mg/0.5 Ml Oral Syringe) 5 - 10 mg PO Q1H PRN PRN Reason: Pain Last Admin: 08/10/17 17:55 Dose: 10 mg *Q Meaningful Use (DIS) - VTE *Q VTE Criteria *Q: - Stroke *Q Stroke Criteria *Q: - AMI *Q AMI Criteria *Q:
== END 2017-08-10 21:15 | disposition expired ==
LOC: JP.ED 10:14 → JP.MS 12:28
PROVIDERS: ADMIT Internal Medicine; ATTEND Internal Medicine
DX: I61.9 Nontraumatic intracerebral hemorrhage, unspecified (principal); J44.9 Chronic obstructive pulmonary disease, unspecified; N40.0 Benign prostatic hyperplasia without lower urinary tract symptoms; K59.09 Other constipation; Z88.0 Allergy status to penicillin; Z88.8 Allergy status to other drugs, medicaments and biological substances; Z79.82 Long term (current) use of aspirin; Z79.899 Other long term (current) drug therapy
CPT/HCPCS: 70450; 96374; 96376; 99285; G0378; J2270; 99217; 99218